=== PATIENT | male | born 1960 | race African-American/Black ===

== ENCOUNTER 2018-10-24 09:05 | Inpatient (IN) | payer MEDICAID ==
[~2018-10-24] VITALS: Ht 182.9 cm; Wt 103.4 kg
[~2018-10-24 09:05] MED LIST: ACET-2178 PO; ASCO500C15 PO; B50 PO; BISA10SU97 PR; DOCU250C14 PO; HC; KLONOPIN; MULT-1116 PO; RESTORIL PO; SOMA PO; [UNRECOGNIZED DRUG - CODE] MC
[2018-10-24] MEDS ORDERED: KETOROLAC 60MG/2ML VIAL IM ONE (10:15)
[2018-10-24 10:49] LABS: CLARITY URINE CLOUDY (CLEAR); COLOR URINE YELLOW (YELLOW); KETONES URINE 1+ (NEGATIVE); LEUKOCYTE ESTERASE URINE 2+ (NEGATIVE); NITRITE URINE NEGATIVE (NEGATIVE); OCCULT BLOOD URINE 3+ (NEGATIVE); PH URINE 5.5 (4.5-8.0); PROTEIN URINE 2+ (NEGATIVE); SPECIFIC GRAVITY URINE 1.022 (1.005-1.030)
[2018-10-24] MEDS ORDERED: CEFTRIAXONE SODIUM 1 G/VIAL IM ONE (12:00)
[2018-10-24] MEDS ORDERED: LIDOCAINE HCL 1% 20ML VIAL (Pyxis) INJ INFIL ONE (12:00)
[2018-10-24 19:20] LABS: BASOPHILS % 1.4 % (0.0-2.0); EOSINOPHILS % 6.3 % (0.0-5.0); HEMATOCRIT. 30.9 % (42.0-52.0); HEMOGLOBIN. 10.1 g/dL (14.0-18.0); LYMPHOCYTES % 14.9 % (20.0-50.0); MEAN CORPUSCULAR HEMOGLOBIN 27.2 pg (28.0-32.0); MEAN CORPUSCULAR VOLUME 83.1 fL (80.0-94.0); MEAN PLATELET VOLUME 8.2 fl (7.4-10.4); MONOCYTES % 9.3 % (2.0-8.0); NEUTROPHILS % 68.1 % (40.0-76.0); PLATELET 307 x1000/uL (130-400); RED BLOOD CELL COUNT 3.71 mill/uL (4.7-6.1); RED CELL DISTRIBUTION WIDTH 16.5 % (11.6-14.6)
[2018-10-24 19:26] LABS: CHLORIDE 108 mEq/L (98-107)
[2018-10-25] MEDS ORDERED: CEFTRIAXONE 1 G PREMIX 50 ML IV ONE (10:30)
[2018-10-25] MEDS ORDERED: POTASSIUM CHLORIDE 20MEQ TABLET SR PO ONE (10:45)
[2018-10-25 11:10] LABS: CHLORIDE 107 mEq/L (98-107)
[2018-10-25 12:00] VITALS: BP 118/58
[2018-10-25] MEDS ORDERED: ACETAMINOPHEN 650MG/20.3ML UDC PO PRN (14:15)
[2018-10-25 15:15] VITALS: BP 118/62
[2018-10-25] MEDS ORDERED: DIPHENHYDRAMINE 50MG/ML VIAL IV PRN (15:30)
[2018-10-25] MEDS ORDERED: CLONIDINE 0.1MG TABLET PO PRN (15:30)
[2018-10-25] MEDS ORDERED: MAGNESIUM/ALUMINUM HYDROXIDE/SIMETHICONE 30ML UDC PO PRN (15:30)
[2018-10-25] MEDS ORDERED: ACETAMINOPHEN 325MG TABLET PO PRN (15:30)
[2018-10-25] MEDS ORDERED: DOCUSATE SODIUM 100MG CAPSULE PO PRN (15:30)
[2018-10-25] MEDS ORDERED: IPRATROPIUM/ALBUTEROL 0.5-3(2.5)MG/3ML NEB INH PRN (15:30)
[2018-10-25] MEDS ORDERED: GUAIFENESIN 200MG/10ML SUGAR FREE UDC PO PRN (15:30)
[2018-10-25] MEDS ORDERED: ONDANSETRON HCL 4MG/2ML INJ IV PRN (15:30)
[2018-10-25] MEDS: DEXT 5%/0.45% NACL 1000ML 1,000 ML IV SCH (16:15)
[2018-10-25] MEDS: HYDROCODONE/ACETAMINOPHEN 10/325MG TABLET PO PRN (18:47)
[2018-10-26] MEDS: TEMAZEPAM 15MG CAPSULE PO PRN ×2 (01:10→21:02)
[2018-10-26] MEDS: HYDROCODONE/ACETAMINOPHEN 10/325MG TABLET PO PRN ×3 (01:13→17:43)
[2018-10-26] MEDS: DEXT 5%/0.45% NACL 1000ML 1,000 ML IV SCH (12:00)
[2018-10-26] MEDS: SODIUM HYPOCHLORITE 0.125% 473ML SOLUTION TOP SCH (17:00)
[2018-10-26 17:34] VITALS: BP 112/64
[2018-10-26 20:00] VITALS: BP 115/59
[2018-10-26] MEDS ORDERED: CEFTRIAXONE SODIUM 250 MG/VIAL IM SCH (21:00)
[2018-10-26] MEDS ORDERED: CEFTRIAXONE SODIUM 500 MG/VIAL IM SCH (22:00)
[2018-10-27] VITALS: BP 121/62
[2018-10-27] MEDS: HYDROCODONE/ACETAMINOPHEN 10/325MG TABLET PO PRN ×3 (06:03→22:30)
[2018-10-27] MEDS: DEXT 5%/0.45% NACL 1000ML 1,000 ML IV SCH (08:00)
[2018-10-27] MEDS: SODIUM HYPOCHLORITE 0.125% 473ML SOLUTION TOP SCH (09:00)
[2018-10-27 16:00] VITALS: BP 121/59
[2018-10-27 20:00] VITALS: BP 126/62
[2018-10-27] MEDS: CARISOPRODOL 350 MG TABLET PO PRN (21:55)
[2018-10-27] MEDS: TEMAZEPAM 15MG CAPSULE PO PRN (22:23)
[2018-10-27] MEDS: CEFTRIAXONE SODIUM 500 MG/VIAL IM SCH (23:41)
[2018-10-28] VITALS: BP 128/54
[2018-10-28] MEDS: CARISOPRODOL 350 MG TABLET PO PRN ×2 (08:56→21:20)
[2018-10-28] MEDS: HYDROCODONE/ACETAMINOPHEN 10/325MG TABLET PO PRN ×2 (08:57→16:15)
[2018-10-28] MEDS: SODIUM HYPOCHLORITE 0.125% 473ML SOLUTION TOP SCH (09:00)
[2018-10-28 09:20] LABS: PROTHROMBIN TIME 10.8 sec (9.6-11.0)
[2018-10-28] MEDS: DIPHENHYDRAMINE 25MG CAPSULE PO PRN (16:15)
[2018-10-28 20:00] VITALS: BP 109/60
[2018-10-28] MEDS: CEFTRIAXONE SODIUM 500 MG/VIAL IM SCH (21:20)
[2018-10-28] MEDS: TEMAZEPAM 15MG CAPSULE PO PRN (23:24)
[2018-10-29] VITALS: BP 125/73
[2018-10-29 04:00] VITALS: BP 114/64
[2018-10-29] MEDS: DIPHENHYDRAMINE 25MG CAPSULE PO PRN ×2 (04:25→18:09)
[2018-10-29] MEDS: HYDROCODONE/ACETAMINOPHEN 10/325MG TABLET PO PRN ×3 (06:25→22:29)
[2018-10-29] MEDS ORDERED: LIDOCAINE HCL/EPINEPHRINE 1%-EPI 1:100,000 20 ML VIAL INFIL NR (09:30)
[2018-10-29 11:45] VITALS: BP 118/71
[2018-10-29] MEDS: CARISOPRODOL 350 MG TABLET PO PRN ×2 (12:02→17:56)
[2018-10-29 12:34] LABS: BASOPHILS % 0.6 % (0.0-2.0); EOSINOPHILS % 3.1 % (0.0-5.0); HEMOGLOBIN. 11.2 g/dL (14.0-18.0); LYMPHOCYTES % 16.4 % (20.0-50.0); MEAN CORPUSCULAR HEMOGLOBIN 27.6 pg (28.0-32.0); MEAN CORPUSCULAR VOLUME 83.7 fL (80.0-94.0); MEAN PLATELET VOLUME 8.3 fl (7.4-10.4); MONOCYTES % 9.5 % (2.0-8.0); NEUTROPHILS % 70.4 % (40.0-76.0); PLATELET 346 x1000/uL (130-400); RED BLOOD CELL COUNT 4.06 mill/uL (4.7-6.1); RED CELL DISTRIBUTION WIDTH 16.7 % (11.6-14.6)
[2018-10-29] MEDS: DEXT 5%/0.45% NACL 1000ML 1,000 ML IV SCH (16:05)
[2018-10-29 20:00] VITALS: BP 114/68
[2018-10-29] MEDS: CEFTRIAXONE SODIUM 500 MG/VIAL IM SCH (21:28)
[2018-10-30] VITALS: BP 116/58
[2018-10-30] MEDS: TEMAZEPAM 15MG CAPSULE PO PRN (00:43)
[2018-10-30] MEDS: HYDROCODONE/ACETAMINOPHEN 10/325MG TABLET PO PRN (08:56)
[2018-10-30] MEDS: DIPHENHYDRAMINE 25MG CAPSULE PO PRN ×2 (09:06→15:50)
[2018-10-30] MEDS: CARISOPRODOL 350 MG TABLET PO PRN ×3 (10:30→23:04)
[2018-10-30 12:00] VITALS: BP 132/63
[2018-10-30 16:00] VITALS: BP 123/66
[2018-10-30] MEDS: HYDROCODONE/ACETAMINOPHEN 5/325MG TABLET PO PRN (18:27)
[2018-10-30 20:00] VITALS: BP 123/66
[2018-10-30] MEDS: CEFTRIAXONE SODIUM 500 MG/VIAL IM SCH (20:50)
[2018-10-31] VITALS: BP 118/65
[2018-10-31] MEDS: TEMAZEPAM 15MG CAPSULE PO PRN ×2 (00:15→23:44)
[2018-10-31] MEDS: DIPHENHYDRAMINE 25MG CAPSULE PO PRN ×2 (00:15→12:27)
[2018-10-31] MEDS: HYDROCODONE/ACETAMINOPHEN 5/325MG TABLET PO PRN ×2 (08:24→17:03)
[2018-10-31] MEDS: CARISOPRODOL 350 MG TABLET PO PRN ×2 (10:24→20:16)
[2018-10-31] MEDS: ENOXAPARIN 30MG/0.3ML SYR SUBCUT SCH ×2 (12:30→21:18)
[2018-10-31 20:00] VITALS: BP 93/66
[2018-11-01] VITALS: BP 112/65
[2018-11-01] MEDS: HYDROCODONE/ACETAMINOPHEN 5/325MG TABLET PO PRN ×2 (08:26→17:56)
[2018-11-01] MEDS: ENOXAPARIN 30MG/0.3ML SYR SUBCUT SCH ×2 (08:26→20:08)
[2018-11-01] MEDS: CARISOPRODOL 350 MG TABLET PO PRN ×2 (11:27→20:07)
[2018-11-01] MEDS: DIPHENHYDRAMINE 25MG CAPSULE PO PRN (14:26)
[2018-11-01 20:00] VITALS: BP 111/58
[2018-11-01] MEDS: TEMAZEPAM 15MG CAPSULE PO PRN (23:35)
[2018-11-02] VITALS: BP 118/60
[2018-11-02 04:00] VITALS: BP 115/64
[2018-11-02] MEDS: HYDROCODONE/ACETAMINOPHEN 5/325MG TABLET PO PRN ×2 (06:06→16:00)
[2018-11-02] MEDS: CARISOPRODOL 350 MG TABLET PO PRN ×2 (08:40→18:19)
[2018-11-02] MEDS: ENOXAPARIN 30MG/0.3ML SYR SUBCUT SCH ×2 (08:41→20:33)
[2018-11-02] MEDS: DIPHENHYDRAMINE 25MG CAPSULE PO PRN ×2 (11:24→20:30)
[2018-11-02 12:00] VITALS: BP 113/69
[2018-11-02 20:00] VITALS: BP 125/68
[2018-11-02] MEDS: TEMAZEPAM 15MG CAPSULE PO PRN (23:02)
[2018-11-03] VITALS: BP 108/66
[2018-11-03] MEDS: HYDROCODONE/ACETAMINOPHEN 5/325MG TABLET PO PRN ×3 (00:15→18:53)
[2018-11-03] MEDS: CARISOPRODOL 350 MG TABLET PO PRN ×3 (01:32→17:00)
[2018-11-03] MEDS: ENOXAPARIN 30MG/0.3ML SYR SUBCUT SCH (08:24)
[2018-11-03 12:00] VITALS: BP 115/63
[2018-11-03 16:08] VITALS: BP 104/72
[2018-11-03 17:24] VITALS: BP 122/73
[2018-11-03 18:53] VITALS: BP 115/78
== END 2018-11-03 19:01 | DRG 710 ==
LOC: ER 09:05 → 6EST 10-25 10:45 → EDBEDREQ 10-25 10:55 → ENRESERV 10-25 11:39
PROVIDERS: ADMIT Internal Medicine; ATTEND Internal Medicine
PROC: 0KBP0ZZ Excision of Left Hip Muscle, Open Approach (ICD-10-PCS; principal; 2018-10-29)
PROC: 0KBN0ZZ Excision of Right Hip Muscle, Open Approach (ICD-10-PCS; 2018-10-29)
PROC: 0KBP0ZZ Excision of Left Hip Muscle, Open Approach (ICD-10-PCS; 2018-11-01)
PROC: 0KBN0ZZ Excision of Right Hip Muscle, Open Approach (ICD-10-PCS; 2018-11-01)
DX: A41.9 Sepsis, unspecified organism (principal); L89.154 Pressure ulcer of sacral region, stage 4; G82.20 Paraplegia, unspecified; L89.324 Pressure ulcer of left buttock, stage 4; L89.314 Pressure ulcer of right buttock, stage 4; B19.20 Unspecified viral hepatitis C without hepatic coma; E66.9 Obesity, unspecified; S20.229A Contusion of unspecified back wall of thorax, initial encounter; W05.0XXA Fall from non-moving wheelchair, initial encounter; N39.0 Urinary tract infection, site not specified; L98.419 Non-pressure chronic ulcer of buttock with unspecified severity; Z59.0 Homelessness; Z86.718 Personal history of other venous thrombosis and embolism; Z99.3 Dependence on wheelchair; Z87.440 Personal history of urinary (tract) infections; I10 Essential (primary) hypertension; Z83.3 Family history of diabetes mellitus; Z89.431 Acquired absence of right foot; Z93.3 Colostomy status; Y93.89 Activity, other specified; Y92.89 Other specified places as the place of occurrence of the external cause; Y99.8 Other external cause status; Z68.30 Body mass index [BMI] 30.0-30.9, adult
CPT/HCPCS: 36415; 80048; 84134; 93970; 99285; J0696; J1200; J1650; J1885; J3490; Q0163

== ENCOUNTER 2019-07-06 20:59 | Inpatient (IN) | payer MEDICAID ==
[~2019-07-06] VITALS: Ht 167.6 cm; Wt 78.9 kg
[~2019-07-06 20:59] MED LIST changes: -ACET-2178 PO; +TOPUD PO
[2019-07-06] MEDS ORDERED: SODIUM CHLORIDE 0.9% 1,000 ML IV ONE (22:06)
[2019-07-07 00:45] LABS: BASOPHILS % 0.6 % (0.0-2.0); EOSINOPHILS % 1.5 % (0.0-5.0); HEMATOCRIT. 26.3 % (42.0-52.0); HEMOGLOBIN. 8.4 g/dL (14.0-18.0); LYMPHOCYTES % 8.9 % (20.0-50.0); MEAN CORPUSCULAR HEMOGLOBIN 25.3 pg (28.0-32.0); MEAN CORPUSCULAR VOLUME 79.2 fL (80.0-94.0); MEAN PLATELET VOLUME 7.8 fl (7.4-10.4); MONOCYTES % 7.6 % (2.0-8.0); NEUTROPHILS % 81.4 % (40.0-76.0); PLATELET 494 x1000/uL (130-400); RED BLOOD CELL COUNT 3.31 mill/uL (4.7-6.1); RED CELL DISTRIBUTION WIDTH 18.5 % (11.6-14.6)
[2019-07-07 00:47] LABS: CHLORIDE 106 mEq/L (98-107)
[2019-07-07 00:56] LABS: INR 1.4; PROTHROMBIN TIME 13.8 sec (9.6-11.0)
[2019-07-07 01:17] LABS: CLARITY URINE CLOUDY (CLEAR); COLOR URINE DARK YELLOW (YELLOW); KETONES URINE TRACE (NEGATIVE); LEUKOCYTE ESTERASE URINE 3+ (NEGATIVE); NITRITE URINE POSITIVE (NEGATIVE); OCCULT BLOOD URINE 2+ (NEGATIVE); PH URINE 5.5 (4.5-8.0); PROTEIN URINE 2+ (NEGATIVE)
[2019-07-07] MEDS ORDERED: MEROPENEM 500 MG in SODIUM CHLORIDE 0.9% 50 ML IV SCH (02:00)
[2019-07-07] MEDS ORDERED: CEFTRIAXONE 1 G PREMIX 50 ML IV SCH (02:00)
[2019-07-07] MEDS ORDERED: CLINDAMYCIN 900 MG PREMIX 50 ML IV SCH (02:00)
[2019-07-07] MEDS ORDERED: KETOROLAC 15MG/ML VIAL IV ONE (02:15)
[2019-07-07] MEDS ORDERED: IPRATROPIUM/ALBUTEROL 0.5-3(2.5)MG/3ML NEB HHN PRN (10:00)
[2019-07-07] MEDS ORDERED: DOCUSATE SODIUM 100MG CAPSULE PO PRN (10:00)
[2019-07-07] MEDS ORDERED: CLONIDINE 0.1MG TABLET PO PRN (10:00)
[2019-07-07] MEDS ORDERED: ACETAMINOPHEN 325MG TABLET PO PRN (10:00)
[2019-07-07] MEDS ORDERED: LORAZEPAM 0.5MG TABLET PO PRN (10:00)
[2019-07-07] MEDS ORDERED: ONDANSETRON HCL 4MG/2ML INJ IV PRN (10:00)
[2019-07-07] MEDS: HYDROCODONE/ACETAMINOPHEN 5/325MG TABLET PO PRN ×2 (13:32→20:26)
[2019-07-07] MEDS ORDERED: CYCLOBENZAPRINE 10MG TABLET PO PRN (16:30)
[2019-07-07] MEDS ORDERED: PIPERACILLIN/TAZOBACTAM 3.375 G in DEXT 5% WATER 100 ML IV SCH (16:30)
[2019-07-07] MEDS: DOCUSATE SODIUM 250MG CAPSULE PO SCH (17:00)
[2019-07-07 17:55] VITALS: BP 124/68
[2019-07-07 17:57] VITALS: BP 124/68
[2019-07-07] MEDS ORDERED: WARFARIN SODIUM 7.5MG TABLET PO SCH (18:00)
[2019-07-07] MEDS: DIPHENHYDRAMINE 50MG CAPSULE PO SCH (18:13)
[2019-07-07 19:02] VITALS: BP 128/63
[2019-07-07 19:42] LABS: TOTAL IRON BINDING CAPACITY 158 ug/dL (250-450)
[2019-07-07 20:00] VITALS: BP 91/67
[2019-07-07] MEDS ORDERED: VANCOMYCIN 1500MG in DEXTROSE 5% WATER 250ML IV NR (20:00)
[2019-07-07 20:12] LABS: VITAMIN B12 SERUM 513 pg/mL (211-911)
[2019-07-07 20:18] LABS: FERRITIN 895 ng/mL (22-322)
[2019-07-07 20:30] LABS: HEPATITIS B SURFACE ANTIGEN NEGATIVE
[2019-07-07] MEDS: BISACODYL 10MG SUPP PR SCH (20:44)
[2019-07-07 20:59] LABS: HEPATITIS A AB IGM NEGATIVE (NEGATIVE)
[2019-07-07] MEDS: PIPERACILLIN/TAZOBACTAM 2.25 G in DEXTROSE 5% WATER 50 ML IV SCH (21:23)
[2019-07-07] MEDS: ZOLPIDEM TARTRATE 5MG TABLET PO PRN (23:11)
[2019-07-07] MEDS: HYDROCODONE/ACETAMINOPHEN 10/325MG TABLET PO PRN (23:55)
[2019-07-08] VITALS: BP 114/41
[2019-07-08 00:35] VITALS: BP 110/52
[2019-07-08] MEDS: PIPERACILLIN/TAZOBACTAM 2.25 G in DEXTROSE 5% WATER 50 ML IV SCH ×2 (01:20→06:00)
[2019-07-08] MEDS: DIPHENHYDRAMINE 50MG CAPSULE PO SCH ×3 (01:20→16:12)
[2019-07-08] MEDS ORDERED: VANCOMYCIN 1 G PREMIX 200 ML IV SCH (03:00)
[2019-07-08 08:00] VITALS: BP 99/46
[2019-07-08] MEDS: DOCUSATE SODIUM 250MG CAPSULE PO SCH ×2 (09:00→16:12)
[2019-07-08] MEDS: VANCOMYCIN 1500MG in DEXTROSE 5% WATER 250ML IV SCH ×2 (10:00→15:47)
[2019-07-08 12:00] VITALS: BP 99/42
[2019-07-08] MEDS ORDERED: PIPERACILLIN/TAZOBACTAM 3.375 G in DEXT 5% WATER 100 ML IV SCH (12:00)
[2019-07-08] MEDS: HYDROCODONE/ACETAMINOPHEN 10/325MG TABLET PO PRN ×2 (12:57→19:50)
[2019-07-08] MEDS ORDERED: AMOXICILLIN/POTASSIUM CLAVULANATE 875/125MG TAB PO SCH (13:00)
[2019-07-08] MEDS: HYDROCODONE/ACETAMINOPHEN 5/325MG TABLET PO PRN (14:52)
[2019-07-08 16:00] VITALS: BP 128/57
[2019-07-08] MEDS: GUAIFENESIN 200MG/10ML SUGAR FREE UDC PO PRN (16:18)
[2019-07-08] MEDS: PIPERACILLIN/TAZOBACTAM 3.375 G in DEXT 5% WATER 100 ML IV SCH ×2 (18:00→18:34)
[2019-07-08] MEDS ORDERED: WARFARIN SODIUM 5MG TABLET PO SCH (18:30)
[2019-07-08 20:00] VITALS: BP 115/53
[2019-07-08] MEDS: BISACODYL 10MG SUPP PR SCH (21:00)
[2019-07-08] MEDS: ZOLPIDEM TARTRATE 5MG TABLET PO PRN (21:45)
[2019-07-09] MEDS: AMOXICILLIN/POTASSIUM CLAVULANATE 875/125MG TAB PO SCH ×2 (00:05→08:34)
[2019-07-09] MEDS: DIPHENHYDRAMINE 50MG CAPSULE PO SCH ×3 (00:06→16:04)
[2019-07-09] MEDS: HYDROCODONE/ACETAMINOPHEN 5/325MG TABLET PO PRN ×4 (00:23→20:25)
[2019-07-09] MEDS: HYDROCODONE/ACETAMINOPHEN 10/325MG TABLET PO PRN ×4 (03:16→22:47)
[2019-07-09] MEDS: DOCUSATE SODIUM 250MG CAPSULE PO SCH ×2 (08:34→16:04)
[2019-07-09 12:00] VITALS: BP 134/54
[2019-07-09] MEDS: GUAIFENESIN 200MG/10ML SUGAR FREE UDC PO PRN (12:02)
[2019-07-09] MEDS ORDERED: WARFARIN SODIUM 5MG TABLET PO NR (18:00)
[2019-07-09 20:00] VITALS: BP 135/62
[2019-07-09] MEDS ORDERED: CEFEPIME 2,000 MG in DEXT 5% WATER 100 ML IV SCH (20:00)
[2019-07-09] MEDS ORDERED: CEFEPIME HCL 2000MG/VIAL INJ IV SCH (21:00)
[2019-07-09] MEDS: BISACODYL 10MG SUPP PR SCH (21:00)
[2019-07-09] MEDS: CEFEPIME HCL 1000MG/VIAL INJ IM SCH (21:52)
[2019-07-09] MEDS: LIDOCAINE HCL/PF 1% 10 MG/ML 5ML VIAL IJ SCH (21:52)
[2019-07-09] MEDS: ZOLPIDEM TARTRATE 5MG TABLET PO PRN (22:47)
[2019-07-10] MEDS: DIPHENHYDRAMINE 50MG CAPSULE PO SCH ×3 (02:22→18:39)
[2019-07-10] MEDS: HYDROCODONE/ACETAMINOPHEN 10/325MG TABLET PO PRN ×3 (06:09→19:49)
[2019-07-10] MEDS: DOCUSATE SODIUM 250MG CAPSULE PO SCH ×2 (09:00→18:42)
[2019-07-10] MEDS: CEFEPIME HCL 1000MG/VIAL INJ IM SCH ×2 (09:00→23:32)
[2019-07-10] MEDS: LIDOCAINE HCL/PF 1% 10 MG/ML 5ML VIAL IJ SCH ×2 (09:00→23:32)
[2019-07-10 12:00] VITALS: BP 122/41
[2019-07-10 16:00] VITALS: BP 109/59
[2019-07-10] MEDS: HYDROCODONE/ACETAMINOPHEN 5/325MG TABLET PO PRN ×2 (16:58→22:03)
[2019-07-10] MEDS ORDERED: SENNOSIDES 8.6MG TABLET PO PRN (17:45)
[2019-07-10 20:00] VITALS: BP 127/66
[2019-07-10 20:31] LABS: BASOPHILS % 1.2 % (0.0-2.0); EOSINOPHILS % 3.2 % (0.0-5.0); HEMATOCRIT. 26.9 % (42.0-52.0); HEMOGLOBIN. 8.5 g/dL (14.0-18.0); LYMPHOCYTES % 9.3 % (20.0-50.0); MEAN CORPUSCULAR HEMOGLOBIN 25.4 pg (28.0-32.0); MEAN CORPUSCULAR VOLUME 80.2 fL (80.0-94.0); MEAN PLATELET VOLUME 7.9 fl (7.4-10.4); MONOCYTES % 7.1 % (2.0-8.0); NEUTROPHILS % 79.2 % (40.0-76.0); PLATELET 452 x1000/uL (130-400); RED BLOOD CELL COUNT 3.36 mill/uL (4.7-6.1); RED CELL DISTRIBUTION WIDTH 19.1 % (11.6-14.6)
[2019-07-10 20:34] LABS: INR 1.3; PROTHROMBIN TIME 12.7 sec (9.6-11.0)
[2019-07-10 20:50] LABS: CHLORIDE 102 mEq/L (98-107)
[2019-07-10] MEDS: BISACODYL 10MG SUPP PR SCH (21:00)
[2019-07-10] MEDS ORDERED: WARFARIN SODIUM 2.5MG TABLET PO NR (21:30)
[2019-07-10] MEDS: TEMAZEPAM 15MG CAPSULE PO PRN (21:37)
[2019-07-11] MEDS: HYDROCODONE/ACETAMINOPHEN 10/325MG TABLET PO PRN ×4 (04:12→23:59)
[2019-07-11] MEDS: DIPHENHYDRAMINE 50MG CAPSULE PO SCH ×3 (04:12→17:47)
[2019-07-11] MEDS: LIDOCAINE HCL/PF 1% 10 MG/ML 5ML VIAL IJ SCH ×2 (09:19→20:50)
[2019-07-11] MEDS: CEFEPIME HCL 1000MG/VIAL INJ IM SCH ×2 (09:19→20:51)
[2019-07-11] MEDS: DOCUSATE SODIUM 250MG CAPSULE PO SCH ×2 (09:20→17:47)
[2019-07-11 10:58] LABS: INR 1.2; PROTHROMBIN TIME 12.5 sec (9.6-11.0)
[2019-07-11] MEDS: HYDROCODONE/ACETAMINOPHEN 5/325MG TABLET PO PRN ×2 (14:30→20:49)
[2019-07-11] MEDS ORDERED: WARFARIN SODIUM 7.5MG TABLET PO SCH (18:00)
[2019-07-11 20:00] VITALS: BP 113/63
[2019-07-11] MEDS: TEMAZEPAM 15MG CAPSULE PO PRN (22:25)
[2019-07-12] VITALS: BP 114/62
[2019-07-12] MEDS: DIPHENHYDRAMINE 50MG CAPSULE PO SCH ×2 (03:19→10:32)
[2019-07-12 04:00] VITALS: BP 109/65
[2019-07-12] MEDS: HYDROCODONE/ACETAMINOPHEN 10/325MG TABLET PO PRN ×2 (06:00→12:52)
[2019-07-12] MEDS: DOCUSATE SODIUM 250MG CAPSULE PO SCH (10:32)
[2019-07-12] MEDS: LIDOCAINE HCL/PF 1% 10 MG/ML 5ML VIAL IJ SCH (11:10)
[2019-07-12] MEDS: CEFEPIME HCL 1000MG/VIAL INJ IM SCH (11:10)
[2019-07-12 11:35] VITALS: BP 134/74
[2019-07-12 12:00] VITALS: BP 119/74
[2019-07-12 12:52] VITALS: BP 119/69
== END 2019-07-12 14:00 | disposition home health service (06) | DRG 466 ==
LOC: ER 20:59 → 5WST 07-07 01:36 → ENRESERV 07-07 14:34 → 6EST 07-10 10:27
PROVIDERS: ADMIT Internal Medicine; ATTEND Internal Medicine
DX: T83.518A Infection and inflammatory reaction due to other urinary catheter, initial encounter (principal); A41.9 Sepsis, unspecified organism; L89.159 Pressure ulcer of sacral region, unspecified stage; L89.310 Pressure ulcer of right buttock, unstageable; E46 Unspecified protein-calorie malnutrition; L89.320 Pressure ulcer of left buttock, unstageable; L89.623 Pressure ulcer of left heel, stage 3; D68.9 Coagulation defect, unspecified; G82.20 Paraplegia, unspecified; L97.519 Non-pressure chronic ulcer of other part of right foot with unspecified severity; N39.0 Urinary tract infection, site not specified; D50.9 Iron deficiency anemia, unspecified; I10 Essential (primary) hypertension; L89.616 Pressure-induced deep tissue damage of right heel; M46.28 Osteomyelitis of vertebra, sacral and sacrococcygeal region; D47.3 Essential (hemorrhagic) thrombocythemia; B96.89 Other specified bacterial agents as the cause of diseases classified elsewhere; B19.20 Unspecified viral hepatitis C without hepatic coma; Y84.6 Urinary catheterization as the cause of abnormal reaction of the patient, or of later complication, without mention of misadventure at the time of the procedure; Y92.89 Other specified places as the place of occurrence of the external cause; Z93.3 Colostomy status; Z86.718 Personal history of other venous thrombosis and embolism; Z68.28 Body mass index [BMI] 28.0-28.9, adult; Z74.01 Bed confinement status; Z59.0 Homelessness; Z88.1 Allergy status to other antibiotic agents; Z91.018 Allergy to other foods; Z88.2 Allergy status to sulfonamides; Z79.899 Other long term (current) drug therapy; Z72.0 Tobacco use; Z71.6 Tobacco abuse counseling
CPT/HCPCS: 36415; 71045; 72192; 73030; 76700; 80048; 80053; 81003; 82607; 82728; 82746; 83540; 83550; 83605; 84134; 84484; 85025; 86705; 86709; 86803; 87077; 87186; 87340; 96361; 96365; 96367; 99285; A4565; C1893; J0692; J0696; J1885; J2185; J2543; J3370; J3490; J7030; J7060; Q0163

== ENCOUNTER 2019-12-27 17:54 | Inpatient (IN) | payer MEDICAID ==
[2019-12-26] MEDS: CEFTRIAXONE 1 G PREMIX 50 ML IV SCH (23:45)
[~2019-12-27] VITALS: Ht 182.9 cm; Wt 85.3 kg
[2019-12-27] MEDS: CLINDAMYCIN 600MG PREMIX 50 ML IV SCH (00:15)
[2019-12-27] MEDS ORDERED: SODIUM CHLORIDE 0.9% 1000ML BAG (SEPSIS BOLUS) IV ONE (19:15)
[2019-12-27] MEDS ORDERED: KETAMINE HCL 50 MG/ML 10ML IM ONE (19:15)
[2019-12-27] MEDS ORDERED: CLINDAMYCIN 600 MG in DEXTROSE 5% WATER 50 ML IV ONE (19:15)
[2019-12-27] MEDS ORDERED: CEFTRIAXONE SODIUM 1 G/VIAL IM ONE (19:15)
[2019-12-27 19:59] LABS: HEMATOCRIT. 24.3 % (42.0-52.0); HEMOGLOBIN. 7.8 g/dL (14.0-18.0); MEAN CORPUSCULAR HEMOGLOBIN 25.9 pg (28.0-32.0); MEAN CORPUSCULAR VOLUME 80.6 fL (80.0-94.0); MEAN PLATELET VOLUME 8.1 fl (7.4-10.4); PLATELET 534 x1000/uL (130-400); RED BLOOD CELL COUNT 3.02 mill/uL (4.7-6.1); RED CELL DISTRIBUTION WIDTH 21.9 % (11.6-14.6)
[2019-12-27 20:02] LABS: CHLORIDE 99 mEq/L (98-107)
[2019-12-27 20:05] LABS: INR 1.3; PROTHROMBIN TIME 13.8 sec (9.6-11.0)
[2019-12-27 20:06] LABS: ETHANOL BLOOD < 10 mg/dL
[2019-12-27 20:21] LABS: CLARITY URINE CLOUDY (CLEAR); COLOR URINE DARK YELLOW (YELLOW); KETONES URINE TRACE (NEGATIVE); LEUKOCYTE ESTERASE URINE 3+ (NEGATIVE); NITRITE URINE NEGATIVE (NEGATIVE); OCCULT BLOOD URINE 2+ (NEGATIVE); PROTEIN URINE 2+ (NEGATIVE); SPECIFIC GRAVITY URINE 1.018 (1.005-1.030)
[2019-12-27 21:06] LABS: PLATELET ESTIMATE MARKEDLY INCREASED
[2019-12-27 21:13] LABS: *BARBITURATES SCREEN URINE NEGATIVE (NEGATIVE); *BENZODIAZEPINES SCREEN URINE NEGATIVE (NEGATIVE)
[2019-12-27 21:14] LABS: *AMPHETAMINES SCREEN URINE NEGATIVE (NEGATIVE); *COCAINE SCREEN URINE PRESUMTIVE POSITIVE (NEGATIVE); METHADONE URINE SCREEN NEGATIVE (NEGATIVE); OPIATES URINE SCREEN NEGATIVE (NEGATIVE); PHENCYCLIDINE URINE SCREEN NEGATIVE (NEGATIVE)
[2019-12-27 21:15] LABS: CANNABINOID URINE SCREEN PRESUMTIVE POSITIVE (NEGATIVE)
[2019-12-27] MEDS ORDERED: LIDOCAINE HCL/PF 1% 10 MG/ML 5ML VIAL ONE (21:43)
[2019-12-27] MEDS: SODIUM CHLORIDE 0.9% 1,000 ML IV SCH (23:13)
[2019-12-27] MEDS ORDERED: IPRATROPIUM/ALBUTEROL 0.5-3(2.5)MG/3ML NEB NEB PRN (23:15)
[2019-12-27] MEDS ORDERED: CLONIDINE 0.1MG TABLET PO PRN (23:15)
[2019-12-27] MEDS ORDERED: MAGNESIUM/ALUMINUM HYDROXIDE/SIMETHICONE 30ML UDC PO PRN (23:15)
[2019-12-28 01:17] LABS: CHLORIDE 106 mEq/L (98-107)
[2019-12-28 01:40] LABS: C REACTIVE PROTEIN QUANT > 190.0 mg/L (0.0-3.0)
[2019-12-28 05:21] LABS: BASOPHILS % 0.7 % (0.0-2.0); EOSINOPHILS % 0.8 % (0.0-5.0); LYMPHOCYTES % 8.4 % (20.0-50.0); MEAN CORPUSCULAR HEMOGLOBIN 26.6 pg (28.0-32.0); MEAN CORPUSCULAR VOLUME 80.5 fL (80.0-94.0); MEAN PLATELET VOLUME 7.5 fl (7.4-10.4); MONOCYTES % 11.4 % (2.0-8.0); NEUTROPHILS % 78.7 % (40.0-76.0); PLATELET 416 x1000/uL (130-400); RED BLOOD CELL COUNT 2.57 mill/uL (4.7-6.1); RED CELL DISTRIBUTION WIDTH 21.6 % (11.6-14.6)
[2019-12-28 05:35] LABS: LDL CHOLESTEROL 24 mg/dL (5-100)
[2019-12-28 05:36] LABS: CREATINE KINASE 69 IU/L (39-308); HDL CHOLESTEROL 31 mg/dL (40-59)
[2019-12-28] MEDS: CLINDAMYCIN 600MG PREMIX 50 ML IV SCH ×3 (06:00→21:28)
[2019-12-28] MEDS ORDERED: CLINDAMYCIN 600 MG in DEXTROSE 5% WATER 50 ML IV SCH (06:00)
[2019-12-28] MEDS ORDERED: DEXTROSE 50% WATER 50ML SYRINGE IV PRN (06:00)
[2019-12-28 06:27] LABS: HEMATOCRIT. 20.7 % (42.0-52.0); HEMOGLOBIN. 6.8 g/dL (14.0-18.0)
[2019-12-28] MEDS: INSULIN LISPRO (HIGH DOSE) 100 UNITS/ML SUBCUT SCH ×5 (07:00→21:00)
[2019-12-28] MEDS: HEPARIN 5000 UNITS/ML VIAL SUBCUT SCH ×2 (09:00→21:36)
[2019-12-28] MEDS ORDERED: POTASSIUM CHLORIDE INJ 40 MEQ in DEXT 5% WATER 250 ML IV NR (10:00)
[2019-12-28] MEDS: BLOOD SUGAR DIAGNOSTIC STRIP TEST SCH ×4 (10:00→21:00)
[2019-12-28 12:00] VITALS: BP 90/54
[2019-12-28] MEDS: HYDROCODONE/ACETAMINOPHEN 5/325MG TABLET PO PRN (13:01)
[2019-12-28] MEDS: SODIUM CHLORIDE 0.9% 1,000 ML IV SCH (13:21)
[2019-12-28 14:30] VITALS: BP 95/52
[2019-12-28 15:55] LABS: HEMATOCRIT 23.7 % (42.0-52.0); HEMOGLOBIN 7.7 g/dL (14.0-18.0)
[2019-12-28 16:06] LABS: CREATINE KINASE 87 IU/L (39-308); INR 1.2; PROTHROMBIN TIME 13.1 sec (9.6-11.0)
[2019-12-28 16:07] VITALS: BP 96/47
[2019-12-28 16:07] LABS: CREATINE KINASE MB FRACTION 1.8 ng/mL (0.5-3.6)
[2019-12-28] MEDS ORDERED: MORPHINE SULFATE 4 MG/ML CPJ (NOT FOR IM USE) IV ONE (16:45)
[2019-12-28] MEDS: DIPHENHYDRAMINE 50MG/ML VIAL IV PRN ×2 (18:41→23:08)
[2019-12-28 20:00] VITALS: BP 101/56
[2019-12-28] MEDS: CEFTRIAXONE 1 G PREMIX 50 ML IV SCH (21:28)
[2019-12-28] MEDS: NITROFURANTOIN MACROCRYSTAL 50MG CAPSULE PO SCH (22:00)
[2019-12-28] MEDS: MORPHINE SULFATE 2 MG/ML CPJ (NOT FOR IM USE) IV PRN (23:01)
[2019-12-29] VITALS: BP 98/53
[2019-12-29] MEDS: SODIUM CHLORIDE 0.9% 1,000 ML IV SCH (01:53)
[2019-12-29] MEDS: CLINDAMYCIN 600MG PREMIX 50 ML IV SCH ×2 (06:50→15:15)
[2019-12-29] MEDS: BLOOD SUGAR DIAGNOSTIC STRIP TEST SCH ×4 (07:03→21:44)
[2019-12-29] MEDS: INSULIN LISPRO (HIGH DOSE) 100 UNITS/ML SUBCUT SCH ×4 (07:50→21:00)
[2019-12-29 10:18] VITALS: BP 98/55
[2019-12-29] MEDS: HEPARIN 5000 UNITS/ML VIAL SUBCUT SCH ×2 (10:34→21:44)
[2019-12-29] MEDS: NITROFURANTOIN MACROCRYSTAL 50MG CAPSULE PO SCH ×2 (10:35→18:09)
[2019-12-29] MEDS: ONDANSETRON HCL 4MG/2ML INJ IV PRN (10:39)
[2019-12-29 12:00] VITALS: BP 104/57
[2019-12-29] MEDS: MORPHINE SULFATE 2 MG/ML CPJ (NOT FOR IM USE) IV PRN ×2 (12:50→21:45)
[2019-12-29] MEDS ORDERED: MORPHINE SULFATE 4 MG/ML CPJ (NOT FOR IM USE) IV NR (14:00)
[2019-12-29] MEDS: DIPHENHYDRAMINE 50MG/ML VIAL IV PRN (15:15)
[2019-12-29 16:00] VITALS: BP 112/60
[2019-12-29] MEDS: SODIUM HYPOCHLORITE 0.125% 473ML SOLUTION TOP SCH (18:10)
[2019-12-29 20:43] VITALS: BP 98/51
[2019-12-29] MEDS ORDERED: CEFTRIAXONE 1 G PREMIX 50 ML IV SCH (21:00)
[2019-12-29] MEDS ORDERED: CEFTRIAXONE 2 G in SODIUM CHLORIDE 0.9% 50 ML IV SCH (21:30)
[2019-12-29] MEDS ORDERED: POTASSIUM CHLORIDE 20MEQ TABLET SR PO NR (23:00)
[2019-12-30] MEDS: DAPTOMYCIN 500 MG in SODIUM CHLORIDE 0.9% 50 ML IV SCH (00:20)
[2019-12-30 00:22] VITALS: BP 103/57
[2019-12-30] MEDS: DIPHENHYDRAMINE 50MG/ML VIAL IV PRN ×3 (01:06→22:26)
[2019-12-30] MEDS: SODIUM CHLORIDE 0.9% 1,000 ML IV SCH ×2 (04:33→20:00)
[2019-12-30] MEDS: BLOOD SUGAR DIAGNOSTIC STRIP TEST SCH ×4 (07:20→21:00)
[2019-12-30] MEDS: INSULIN LISPRO (HIGH DOSE) 100 UNITS/ML SUBCUT SCH ×4 (07:50→21:00)
[2019-12-30 08:13] VITALS: BP 102/57
[2019-12-30] MEDS: SODIUM HYPOCHLORITE 0.125% 473ML SOLUTION TOP SCH ×2 (09:00→16:23)
[2019-12-30] MEDS: HEPARIN 5000 UNITS/ML VIAL SUBCUT SCH ×2 (09:00→20:21)
[2019-12-30 09:12] LABS: EOSINOPHILS % 4.2 % (0.0-5.0); HEMOGLOBIN. 7.6 g/dL (14.0-18.0); LYMPHOCYTES % 11.9 % (20.0-50.0); MEAN CORPUSCULAR HEMOGLOBIN 26.9 pg (28.0-32.0); MEAN CORPUSCULAR VOLUME 80.8 fL (80.0-94.0); MEAN PLATELET VOLUME 6.8 fl (7.4-10.4); MONOCYTES % 11.9 % (2.0-8.0); PLATELET 419 x1000/uL (130-400); RED BLOOD CELL COUNT 2.84 mill/uL (4.7-6.1); RED CELL DISTRIBUTION WIDTH 20.6 % (11.6-14.6)
[2019-12-30] MEDS: MORPHINE SULFATE 2 MG/ML CPJ (NOT FOR IM USE) IV PRN ×3 (09:23→20:28)
[2019-12-30 09:24] LABS: CHLORIDE 111 mEq/L (98-107)
[2019-12-30] MEDS: ONDANSETRON HCL 4MG/2ML INJ IV PRN (09:42)
[2019-12-30 11:45] VITALS: BP 94/56
[2019-12-30 16:48] VITALS: BP 95/55
[2019-12-30 20:00] VITALS: BP 101/60
[2019-12-31] MEDS: DAPTOMYCIN 500 MG in SODIUM CHLORIDE 0.9% 50 ML IV SCH ×2 (00:32→23:22)
[2019-12-31 00:43] VITALS: BP 101/55
[2019-12-31] MEDS: MORPHINE SULFATE 2 MG/ML CPJ (NOT FOR IM USE) IV PRN ×5 (00:58→23:33)
[2019-12-31] MEDS: DIPHENHYDRAMINE 50MG/ML VIAL IV PRN ×3 (05:19→18:45)
[2019-12-31] MEDS: SODIUM CHLORIDE 0.9% 1,000 ML IV SCH ×2 (07:13→20:33)
[2019-12-31] MEDS: BLOOD SUGAR DIAGNOSTIC STRIP TEST SCH ×4 (07:20→21:00)
[2019-12-31] MEDS: INSULIN LISPRO (HIGH DOSE) 100 UNITS/ML SUBCUT SCH ×4 (07:50→21:00)
[2019-12-31 07:59] VITALS: BP 122/72
[2019-12-31 08:00] VITALS: BP 106/58
[2019-12-31] MEDS: SODIUM HYPOCHLORITE 0.125% 473ML SOLUTION TOP SCH ×2 (09:00→17:00)
[2019-12-31] MEDS: HEPARIN 5000 UNITS/ML VIAL SUBCUT SCH ×2 (09:14→20:48)
[2019-12-31 11:18] LABS: CHLORIDE 105 mEq/L (98-107)
[2019-12-31 12:00] VITALS: BP 105/55
[2019-12-31 16:00] VITALS: BP 115/70
[2019-12-31] MEDS: ONDANSETRON HCL 4MG/2ML INJ IV PRN (16:24)
[2019-12-31 18:03] LABS: BASOPHILS % 1.2 % (0.0-2.0); EOSINOPHILS % 3.7 % (0.0-5.0); HEMATOCRIT. 23.9 % (42.0-52.0); HEMOGLOBIN. 7.8 g/dL (14.0-18.0); LYMPHOCYTES % 15.9 % (20.0-50.0); MEAN CORPUSCULAR VOLUME 82.4 fL (80.0-94.0); MEAN PLATELET VOLUME 7.5 fl (7.4-10.4); MONOCYTES % 13.4 % (2.0-8.0); NEUTROPHILS % 65.8 % (40.0-76.0); PLATELET 428 x1000/uL (130-400); RED CELL DISTRIBUTION WIDTH 20.5 % (11.6-14.6)
[2019-12-31 20:16] VITALS: BP 100/58
[2019-12-31] MEDS: HYDROCODONE/ACETAMINOPHEN 5/325MG TABLET PO PRN (21:26)
[2019-12-31] MEDS: TEMAZEPAM 15MG CAPSULE PO PRN (23:22)
[2020-01-01 00:36] VITALS: BP 107/55
[2020-01-01] MEDS: DIPHENHYDRAMINE 50MG/ML VIAL IV PRN ×4 (02:31→21:59)
[2020-01-01] MEDS: MORPHINE SULFATE 2 MG/ML CPJ (NOT FOR IM USE) IV PRN ×3 (06:11→21:24)
[2020-01-01] MEDS: BLOOD SUGAR DIAGNOSTIC STRIP TEST SCH ×4 (06:37→21:23)
[2020-01-01] MEDS: INSULIN LISPRO (HIGH DOSE) 100 UNITS/ML SUBCUT SCH ×4 (07:06→21:00)
[2020-01-01 08:47] VITALS: BP 99/53
[2020-01-01] MEDS: SODIUM HYPOCHLORITE 0.125% 473ML SOLUTION TOP SCH ×2 (08:47→17:19)
[2020-01-01] MEDS: HEPARIN 5000 UNITS/ML VIAL SUBCUT SCH ×2 (08:47→20:45)
[2020-01-01] MEDS: SODIUM CHLORIDE 0.9% 1,000 ML IV SCH (09:05)
[2020-01-01 12:00] VITALS: BP 99/54
[2020-01-01 14:33] LABS: CHLORIDE 103 mEq/L (98-107)
[2020-01-01 16:00] VITALS: BP 106/52
[2020-01-01 17:22] LABS: BASOPHILS % 0.9 % (0.0-2.0); EOSINOPHILS % 3.1 % (0.0-5.0); HEMATOCRIT. 25.9 % (42.0-52.0); HEMOGLOBIN. 8.4 g/dL (14.0-18.0); LYMPHOCYTES % 14.7 % (20.0-50.0); MEAN CORPUSCULAR HEMOGLOBIN 26.9 pg (28.0-32.0); MEAN CORPUSCULAR VOLUME 82.5 fL (80.0-94.0); MEAN PLATELET VOLUME 7.3 fl (7.4-10.4); NEUTROPHILS % 69.3 % (40.0-76.0); PLATELET 437 x1000/uL (130-400); RED BLOOD CELL COUNT 3.13 mill/uL (4.7-6.1); RED CELL DISTRIBUTION WIDTH 20.7 % (11.6-14.6)
[2020-01-01 20:00] VITALS: BP 104/62
[2020-01-01] MEDS: AMPICILLIN 2,000 MG in SODIUM CHLORIDE 0.9% 100 ML IV SCH (20:45)
[2020-01-02] VITALS: BP 102/62
[2020-01-02] MEDS: TEMAZEPAM 15MG CAPSULE PO PRN ×2 (00:02→23:13)
[2020-01-02] MEDS: MORPHINE SULFATE 2 MG/ML CPJ (NOT FOR IM USE) IV PRN ×5 (01:23→20:03)
[2020-01-02] MEDS: AMPICILLIN 2,000 MG in SODIUM CHLORIDE 0.9% 100 ML IV SCH ×4 (02:04→22:04)
[2020-01-02] MEDS: DIPHENHYDRAMINE 50MG/ML VIAL IV PRN ×3 (06:26→20:03)
[2020-01-02] MEDS: BLOOD SUGAR DIAGNOSTIC STRIP TEST SCH ×4 (06:34→21:00)
[2020-01-02] MEDS: INSULIN LISPRO (HIGH DOSE) 100 UNITS/ML SUBCUT SCH ×4 (07:49→21:00)
[2020-01-02] MEDS: SODIUM HYPOCHLORITE 0.125% 473ML SOLUTION TOP SCH ×2 (09:00→16:43)
[2020-01-02] MEDS: HEPARIN 5000 UNITS/ML VIAL SUBCUT SCH ×2 (09:17→20:04)
[2020-01-02 12:12] VITALS: BP 101/60
[2020-01-02 16:00] VITALS: BP 100/59
[2020-01-02] MEDS ORDERED: BISACODYL 10MG SUPP PR PRN (17:45)
[2020-01-02 20:00] VITALS: BP 103/59
[2020-01-02] MEDS: DOCUSATE SODIUM 100MG CAPSULE PO PRN (23:13)
[2020-01-02] MEDS: ONDANSETRON HCL 4MG/2ML INJ IV PRN (23:13)
[2020-01-02] MEDS: SENNOSIDES/DOCUSATE SOD 8.6/50MG TABLET PO PRN (23:24)
[2020-01-03] VITALS: BP 105/55
[2020-01-03] MEDS: AMPICILLIN 2,000 MG in SODIUM CHLORIDE 0.9% 100 ML IV SCH ×4 (03:19→20:40)
[2020-01-03] MEDS: BLOOD SUGAR DIAGNOSTIC STRIP TEST SCH ×4 (06:45→21:00)
[2020-01-03] MEDS: INSULIN LISPRO (HIGH DOSE) 100 UNITS/ML SUBCUT SCH ×4 (07:44→21:00)
[2020-01-03] MEDS: SODIUM HYPOCHLORITE 0.125% 473ML SOLUTION TOP SCH ×2 (08:00→16:16)
[2020-01-03] MEDS: HEPARIN 5000 UNITS/ML VIAL SUBCUT SCH ×2 (08:01→20:45)
[2020-01-03] MEDS: MORPHINE SULFATE 2 MG/ML CPJ (NOT FOR IM USE) IV PRN ×2 (13:35→20:44)
[2020-01-03] MEDS: HYDROCODONE/ACETAMINOPHEN 5/325MG TABLET PO PRN ×2 (16:22→22:52)
[2020-01-03 16:24] VITALS: BP 94/57
[2020-01-03 17:34] LABS: CHLORIDE 106 mEq/L (98-107)
[2020-01-03 20:00] VITALS: BP 105/54
[2020-01-03] MEDS: DIPHENHYDRAMINE 50MG/ML VIAL IV PRN (20:44)
[2020-01-04] VITALS: BP 111/64
[2020-01-04] MEDS: TEMAZEPAM 15MG CAPSULE PO PRN (00:03)
[2020-01-04] MEDS: AMPICILLIN 2,000 MG in SODIUM CHLORIDE 0.9% 100 ML IV SCH ×4 (03:36→20:35)
[2020-01-04] MEDS: DIPHENHYDRAMINE 50MG/ML VIAL IV PRN ×2 (03:44→17:28)
[2020-01-04] MEDS: MORPHINE SULFATE 2 MG/ML CPJ (NOT FOR IM USE) IV PRN ×4 (03:44→23:31)
[2020-01-04] MEDS: BLOOD SUGAR DIAGNOSTIC STRIP TEST SCH ×4 (06:56→21:00)
[2020-01-04] MEDS: INSULIN LISPRO (HIGH DOSE) 100 UNITS/ML SUBCUT SCH ×4 (06:57→21:00)
[2020-01-04] MEDS: SODIUM HYPOCHLORITE 0.125% 473ML SOLUTION TOP SCH ×2 (08:40→17:16)
[2020-01-04] MEDS: HEPARIN 5000 UNITS/ML VIAL SUBCUT SCH ×2 (08:40→20:39)
[2020-01-04] MEDS: HYDROCODONE/ACETAMINOPHEN 5/325MG TABLET PO PRN ×2 (13:22→20:40)
[2020-01-04] MEDS: SENNOSIDES/DOCUSATE SOD 8.6/50MG TABLET PO PRN (23:36)
[2020-01-05] VITALS: BP 102/64
[2020-01-05] MEDS: DIPHENHYDRAMINE 50MG/ML VIAL IV PRN ×4 (00:33→23:46)
[2020-01-05] MEDS: TEMAZEPAM 15MG CAPSULE PO PRN (00:59)
[2020-01-05] MEDS: AMPICILLIN 2,000 MG in SODIUM CHLORIDE 0.9% 100 ML IV SCH ×4 (03:27→20:09)
[2020-01-05] MEDS: BLOOD SUGAR DIAGNOSTIC STRIP TEST SCH ×4 (07:20→21:00)
[2020-01-05] MEDS: INSULIN LISPRO (HIGH DOSE) 100 UNITS/ML SUBCUT SCH ×4 (07:30→21:00)
[2020-01-05] MEDS: SODIUM HYPOCHLORITE 0.125% 473ML SOLUTION TOP SCH ×2 (09:00→16:07)
[2020-01-05] MEDS: HEPARIN 5000 UNITS/ML VIAL SUBCUT SCH ×2 (09:00→20:47)
[2020-01-05] MEDS: ONDANSETRON HCL 4MG/2ML INJ IV PRN (09:27)
[2020-01-05 12:00] VITALS: BP 101/59
[2020-01-05] MEDS: MORPHINE SULFATE 2 MG/ML CPJ (NOT FOR IM USE) IV PRN ×2 (13:26→20:09)
[2020-01-05] MEDS: HYDROCODONE/ACETAMINOPHEN 5/325MG TABLET PO PRN ×2 (15:38→22:01)
[2020-01-05 16:00] VITALS: BP 102/64
[2020-01-05 20:00] VITALS: BP 109/57
[2020-01-06] VITALS: BP 109/55
[2020-01-06] MEDS: SENNOSIDES/DOCUSATE SOD 8.6/50MG TABLET PO PRN (00:01)
[2020-01-06] MEDS: TEMAZEPAM 15MG CAPSULE PO PRN (00:01)
[2020-01-06] MEDS: AMPICILLIN 2,000 MG in SODIUM CHLORIDE 0.9% 100 ML IV SCH ×4 (03:15→20:34)
[2020-01-06] MEDS: MORPHINE SULFATE 2 MG/ML CPJ (NOT FOR IM USE) IV PRN ×3 (03:27→20:35)
[2020-01-06] MEDS: BLOOD SUGAR DIAGNOSTIC STRIP TEST SCH ×4 (06:05→21:00)
[2020-01-06] MEDS: INSULIN LISPRO (HIGH DOSE) 100 UNITS/ML SUBCUT SCH ×4 (06:05→21:00)
[2020-01-06 08:00] VITALS: BP 110/62
[2020-01-06] MEDS: SODIUM HYPOCHLORITE 0.125% 473ML SOLUTION TOP SCH ×2 (09:28→17:13)
[2020-01-06] MEDS: HEPARIN 5000 UNITS/ML VIAL SUBCUT SCH ×2 (09:29→20:34)
[2020-01-06] MEDS: DIPHENHYDRAMINE 50MG/ML VIAL IV PRN ×2 (09:32→22:25)
[2020-01-06] MEDS: HYDROCODONE/ACETAMINOPHEN 5/325MG TABLET PO PRN (17:14)
[2020-01-06 20:00] VITALS: BP 101/45
[2020-01-07] VITALS: BP 104/54
[2020-01-07] MEDS: SENNOSIDES/DOCUSATE SOD 8.6/50MG TABLET PO PRN (00:16)
[2020-01-07] MEDS: TEMAZEPAM 15MG CAPSULE PO PRN (00:16)
[2020-01-07] MEDS: HYDROCODONE/ACETAMINOPHEN 5/325MG TABLET PO PRN ×2 (00:55→13:11)
[2020-01-07] MEDS: BLOOD SUGAR DIAGNOSTIC STRIP TEST SCH ×4 (07:20→21:13)
[2020-01-07] MEDS: INSULIN LISPRO (HIGH DOSE) 100 UNITS/ML SUBCUT SCH ×4 (07:50→21:00)
[2020-01-07] MEDS: HEPARIN 5000 UNITS/ML VIAL SUBCUT SCH ×2 (09:00→21:13)
[2020-01-07] MEDS: SODIUM HYPOCHLORITE 0.125% 473ML SOLUTION TOP SCH ×2 (09:00→17:00)
[2020-01-07] MEDS ORDERED: NALOXONE HCL 0.4 MG/ML 1ML VIAL IV PRN (11:00)
[2020-01-07 12:00] VITALS: BP 103/56
[2020-01-07] MEDS: DIPHENHYDRAMINE 50MG/ML VIAL IV PRN ×2 (12:03→18:45)
[2020-01-07] MEDS: AMPICILLIN 2,000 MG in SODIUM CHLORIDE 0.9% 100 ML IV SCH ×2 (13:00→21:13)
[2020-01-07] MEDS: GABAPENTIN 100MG CAPSULE PO SCH ×4 (14:00→23:00)
[2020-01-07] MEDS: MORPHINE SULFATE 2 MG/ML CPJ (NOT FOR IM USE) IV PRN (15:17)
[2020-01-07 16:00] VITALS: BP 108/56
[2020-01-07 20:00] VITALS: BP 103/54
[2020-01-07] MEDS ORDERED: HYDROCODONE/ACETAMINOPHEN 5/325MG TABLET PO PRN (21:00)
[2020-01-07] MEDS ORDERED: MORPHINE SULFATE 2 MG/ML CPJ (NOT FOR IM USE) IV PRN (21:00)
[2020-01-07] MEDS: HYDROCODONE/ACETAMINOPHEN 10/325MG TABLET PO PRN (22:47)
[2020-01-08] VITALS: BP 110/57
[2020-01-08] MEDS: TEMAZEPAM 15MG CAPSULE PO PRN ×2 (00:19→23:47)
[2020-01-08] MEDS: SENNOSIDES/DOCUSATE SOD 8.6/50MG TABLET PO PRN ×2 (00:19→23:47)
[2020-01-08] MEDS: MORPHINE SULFATE 2 MG/ML CPJ (NOT FOR IM USE) IV PRN ×2 (01:53→03:04)
[2020-01-08] MEDS: AMPICILLIN 2,000 MG in SODIUM CHLORIDE 0.9% 100 ML IV SCH ×4 (01:53→18:57)
[2020-01-08] MEDS: DIPHENHYDRAMINE 50MG/ML VIAL IV PRN ×4 (02:03→21:54)
[2020-01-08] MEDS: GABAPENTIN 100MG CAPSULE PO SCH (06:00)
[2020-01-08] MEDS: BLOOD SUGAR DIAGNOSTIC STRIP TEST SCH ×4 (06:40→21:03)
[2020-01-08] MEDS: INSULIN LISPRO (HIGH DOSE) 100 UNITS/ML SUBCUT SCH ×4 (07:50→21:00)
[2020-01-08 08:00] VITALS: BP 99/52
[2020-01-08] MEDS: HEPARIN 5000 UNITS/ML VIAL SUBCUT SCH ×2 (08:58→20:46)
[2020-01-08] MEDS: SODIUM HYPOCHLORITE 0.125% 473ML SOLUTION TOP SCH (09:00)
[2020-01-08] MEDS: HYDROMORPHONE HCL/PF 2MG/ML CPJ IV PRN ×2 (10:34→18:20)
[2020-01-08 12:00] VITALS: BP 109/60
[2020-01-08] MEDS: HYDROCODONE/ACETAMINOPHEN 10/325MG TABLET PO PRN ×2 (13:32→20:46)
[2020-01-08 16:00] VITALS: BP 101/55
[2020-01-08 20:00] VITALS: BP 104/58
[2020-01-09] VITALS: BP 116/56
[2020-01-09] MEDS: HYDROMORPHONE HCL/PF 2MG/ML CPJ IV PRN ×4 (00:53→19:10)
[2020-01-09] MEDS: AMPICILLIN 2,000 MG in SODIUM CHLORIDE 0.9% 100 ML IV SCH ×5 (00:59→23:35)
[2020-01-09] MEDS: DIPHENHYDRAMINE 50MG/ML VIAL IV PRN ×4 (03:55→22:10)
[2020-01-09] MEDS: BLOOD SUGAR DIAGNOSTIC STRIP TEST SCH ×4 (06:43→20:18)
[2020-01-09] MEDS: INSULIN LISPRO (HIGH DOSE) 100 UNITS/ML SUBCUT SCH ×4 (06:43→20:18)
[2020-01-09] MEDS: HEPARIN 5000 UNITS/ML VIAL SUBCUT SCH ×2 (09:54→20:19)
[2020-01-09 16:00] VITALS: BP 101/52
[2020-01-09 20:00] VITALS: BP 121/68
[2020-01-10] VITALS: BP 119/62
[2020-01-10] MEDS: SODIUM HYPOCHLORITE 0.125% 473ML SOLUTION TOP SCH ×4 (00:10→17:00)
[2020-01-10] MEDS: TEMAZEPAM 15MG CAPSULE PO PRN (00:16)
[2020-01-10] MEDS: SENNOSIDES/DOCUSATE SOD 8.6/50MG TABLET PO PRN (00:16)
[2020-01-10] MEDS: HYDROMORPHONE HCL/PF 2MG/ML CPJ IV PRN ×4 (01:16→21:01)
[2020-01-10] MEDS: HYDROCODONE/ACETAMINOPHEN 10/325MG TABLET PO PRN ×2 (03:27→23:11)
[2020-01-10] MEDS: AMPICILLIN 2,000 MG in SODIUM CHLORIDE 0.9% 100 ML IV SCH ×4 (05:19→23:12)
[2020-01-10] MEDS: DIPHENHYDRAMINE 50MG/ML VIAL IV PRN ×3 (05:19→17:59)
[2020-01-10] MEDS: BLOOD SUGAR DIAGNOSTIC STRIP TEST SCH ×4 (06:27→20:43)
[2020-01-10] MEDS: INSULIN LISPRO (HIGH DOSE) 100 UNITS/ML SUBCUT SCH ×4 (07:50→20:44)
[2020-01-10] MEDS: HEPARIN 5000 UNITS/ML VIAL SUBCUT SCH ×2 (08:19→20:45)
[2020-01-10 12:00] VITALS: BP 95/41
[2020-01-10 16:00] VITALS: BP 101/48
[2020-01-11] VITALS: BP 117/73
[2020-01-11] MEDS ORDERED: TEMAZEPAM 15MG CAPSULE PO PRN (00:30)
[2020-01-11] MEDS: DIPHENHYDRAMINE 50MG/ML VIAL IV PRN ×4 (01:12→22:32)
[2020-01-11] MEDS: HYDROMORPHONE HCL/PF 2MG/ML CPJ IV PRN ×4 (03:22→23:44)
[2020-01-11] MEDS: AMPICILLIN 2,000 MG in SODIUM CHLORIDE 0.9% 100 ML IV SCH ×3 (05:10→17:24)
[2020-01-11] MEDS: BLOOD SUGAR DIAGNOSTIC STRIP TEST SCH ×4 (07:20→21:00)
[2020-01-11] MEDS: INSULIN LISPRO (HIGH DOSE) 100 UNITS/ML SUBCUT SCH ×4 (07:40→21:00)
[2020-01-11 08:00] VITALS: BP 114/68
[2020-01-11] MEDS: HEPARIN 5000 UNITS/ML VIAL SUBCUT SCH ×2 (08:59→20:28)
[2020-01-11] MEDS: SODIUM HYPOCHLORITE 0.125% 473ML SOLUTION TOP SCH ×2 (09:00→16:38)
[2020-01-11 09:39] LABS: CHLORIDE 105 mEq/L (98-107)
[2020-01-11 09:46] LABS: BASOPHILS % 0.3 % (0.0-2.0); HEMATOCRIT. 28.5 % (42.0-52.0); HEMOGLOBIN. 9.4 g/dL (14.0-18.0); LYMPHOCYTES % 19.6 % (20.0-50.0); MEAN CORPUSCULAR HEMOGLOBIN 27.3 pg (28.0-32.0); MEAN CORPUSCULAR VOLUME 82.4 fL (80.0-94.0); MEAN PLATELET VOLUME 8.4 fl (7.4-10.4); MONOCYTES % 12.4 % (2.0-8.0); NEUTROPHILS % 64.7 % (40.0-76.0); PLATELET 275 x1000/uL (130-400); RED BLOOD CELL COUNT 3.46 mill/uL (4.7-6.1); RED CELL DISTRIBUTION WIDTH 20.9 % (11.6-14.6)
[2020-01-11 12:00] VITALS: BP 103/55
[2020-01-11] MEDS: HYDROCODONE/ACETAMINOPHEN 10/325MG TABLET PO PRN ×2 (13:29→20:18)
[2020-01-11 16:00] VITALS: BP 104/54
[2020-01-11 20:00] VITALS: BP 114/49
[2020-01-12] VITALS: BP 136/50
[2020-01-12] MEDS: SENNOSIDES/DOCUSATE SOD 8.6/50MG TABLET PO PRN (01:24)
[2020-01-12] MEDS: AMPICILLIN 2,000 MG in SODIUM CHLORIDE 0.9% 100 ML IV SCH ×3 (01:28→06:17)
[2020-01-12] MEDS ORDERED: TEMAZEPAM 15MG CAPSULE PO PRN (02:45)
[2020-01-12] MEDS: DIPHENHYDRAMINE 50MG/ML VIAL IV PRN ×3 (04:34→20:05)
[2020-01-12] MEDS: HYDROMORPHONE HCL/PF 2MG/ML CPJ IV PRN ×3 (05:59→17:58)
[2020-01-12] MEDS: BLOOD SUGAR DIAGNOSTIC STRIP TEST SCH ×4 (06:38→21:00)
[2020-01-12] MEDS: INSULIN LISPRO (HIGH DOSE) 100 UNITS/ML SUBCUT SCH ×4 (07:50→21:00)
[2020-01-12] MEDS: ZINC SULFATE 220 MG ( 50 ) CAPSULE PO SCH (09:22)
[2020-01-12] MEDS: HEPARIN 5000 UNITS/ML VIAL SUBCUT SCH ×2 (09:22→20:05)
[2020-01-12] MEDS: ASCORBIC ACID 500 MG TABLET PO SCH (09:22)
[2020-01-12] MEDS: SODIUM HYPOCHLORITE 0.125% 473ML SOLUTION TOP SCH ×2 (09:44→17:58)
[2020-01-12 12:00] VITALS: BP 117/60
[2020-01-12 16:00] VITALS: BP 125/65
[2020-01-12 20:00] VITALS: BP 135/76
[2020-01-12] MEDS: HYDROCODONE/ACETAMINOPHEN 10/325MG TABLET PO PRN (20:20)
[2020-01-13] VITALS: BP 115/70
[2020-01-13] MEDS: SENNOSIDES/DOCUSATE SOD 8.6/50MG TABLET PO PRN (00:26)
[2020-01-13] MEDS: TEMAZEPAM 15MG CAPSULE PO PRN (00:27)
[2020-01-13] MEDS: HYDROMORPHONE HCL/PF 2MG/ML CPJ IV PRN ×3 (00:27→22:28)
[2020-01-13] MEDS: DIPHENHYDRAMINE 50MG/ML VIAL IV PRN ×3 (02:06→19:34)
[2020-01-13] MEDS: HYDROCODONE/ACETAMINOPHEN 10/325MG TABLET PO PRN ×3 (04:28→20:52)
[2020-01-13] MEDS: BLOOD SUGAR DIAGNOSTIC STRIP TEST SCH ×4 (06:48→21:00)
[2020-01-13] MEDS: INSULIN LISPRO (HIGH DOSE) 100 UNITS/ML SUBCUT SCH ×4 (07:29→21:00)
[2020-01-13] MEDS: ZINC SULFATE 220 MG ( 50 ) CAPSULE PO SCH (09:16)
[2020-01-13] MEDS: ASCORBIC ACID 500 MG TABLET PO SCH (09:16)
[2020-01-13] MEDS: HEPARIN 5000 UNITS/ML VIAL SUBCUT SCH ×2 (09:17→21:28)
[2020-01-13] MEDS: SODIUM HYPOCHLORITE 0.125% 473ML SOLUTION TOP SCH ×2 (09:23→16:04)
[2020-01-13 12:00] VITALS: BP 121/56
[2020-01-13 16:00] VITALS: BP 125/73
[2020-01-13 20:23] VITALS: BP 116/70
[2020-01-14] MEDS: TEMAZEPAM 15MG CAPSULE PO PRN (00:04)
[2020-01-14] MEDS: SENNOSIDES/DOCUSATE SOD 8.6/50MG TABLET PO PRN (00:04)
[2020-01-14 00:26] VITALS: BP 110/53
[2020-01-14] MEDS: HYDROCODONE/ACETAMINOPHEN 10/325MG TABLET PO PRN ×3 (00:57→21:12)
[2020-01-14] MEDS: DIPHENHYDRAMINE 50MG/ML VIAL IV PRN ×4 (01:41→22:28)
[2020-01-14] MEDS: BLOOD SUGAR DIAGNOSTIC STRIP TEST SCH ×4 (06:28→21:00)
[2020-01-14] MEDS: INSULIN LISPRO (HIGH DOSE) 100 UNITS/ML SUBCUT SCH ×4 (07:33→21:00)
[2020-01-14] MEDS: ZINC SULFATE 220 MG ( 50 ) CAPSULE PO SCH (09:01)
[2020-01-14] MEDS: ASCORBIC ACID 500 MG TABLET PO SCH (09:01)
[2020-01-14] MEDS: SODIUM HYPOCHLORITE 0.125% 473ML SOLUTION TOP SCH ×2 (09:02→17:00)
[2020-01-14] MEDS: HEPARIN 5000 UNITS/ML VIAL SUBCUT SCH ×2 (09:02→21:11)
[2020-01-14] MEDS: HYDROMORPHONE HCL/PF 2MG/ML CPJ IV PRN ×3 (10:45→23:29)
[2020-01-14 12:00] VITALS: BP 102/57
[2020-01-14 20:00] VITALS: BP 97/58
[2020-01-15] VITALS: BP 111/57
[2020-01-15] MEDS: TEMAZEPAM 15MG CAPSULE PO PRN (01:00)
[2020-01-15] MEDS: ACETAMINOPHEN 325MG TABLET PO PRN (01:00)
[2020-01-15] MEDS: SENNOSIDES/DOCUSATE SOD 8.6/50MG TABLET PO PRN (01:01)
[2020-01-15] MEDS: INSULIN LISPRO (HIGH DOSE) 100 UNITS/ML SUBCUT SCH ×4 (05:47→20:26)
[2020-01-15] MEDS: BLOOD SUGAR DIAGNOSTIC STRIP TEST SCH ×4 (05:47→20:26)
[2020-01-15] MEDS: HYDROMORPHONE HCL/PF 2MG/ML CPJ IV PRN ×3 (06:56→20:07)
[2020-01-15 08:00] VITALS: BP_SYST 106; BP_SYST 110; BP_DIAS 59; BP_DIAS 65
[2020-01-15] MEDS: DIPHENHYDRAMINE 50MG/ML VIAL IV PRN ×3 (08:06→21:39)
[2020-01-15] MEDS: HEPARIN 5000 UNITS/ML VIAL SUBCUT SCH ×2 (08:06→20:11)
[2020-01-15] MEDS: SODIUM HYPOCHLORITE 0.125% 473ML SOLUTION TOP SCH ×2 (08:07→17:15)
[2020-01-15] MEDS: ASCORBIC ACID 500 MG TABLET PO SCH (08:07)
[2020-01-15] MEDS: ONDANSETRON HCL 4MG/2ML INJ IV PRN (08:07)
[2020-01-15] MEDS: ZINC SULFATE 220 MG ( 50 ) CAPSULE PO SCH (08:07)
[2020-01-15 12:00] VITALS: BP_SYST 106; BP_SYST 110; BP_DIAS 47; BP_DIAS 75
[2020-01-15] MEDS: TAZOBACTAM IV SCH ×2 (15:48→20:11)
[2020-01-15] MEDS: SODIUM CHLORIDE 0.9% IV SCH ×2 (15:48→20:11)
[2020-01-15] MEDS: PIPERACILLIN IV SCH ×2 (15:48→20:11)
[2020-01-15 16:00] VITALS: BP_SYST 102; BP_SYST 105; BP_DIAS 48; BP_DIAS 67
[2020-01-15 17:29] LABS: BASOPHILS % 0.6 % (0.0-2.0); EOSINOPHILS % 1.1 % (0.0-5.0); HEMATOCRIT. 29.1 % (42.0-52.0); HEMOGLOBIN. 9.6 g/dL (14.0-18.0); LYMPHOCYTES % 9.5 % (20.0-50.0); MEAN CORPUSCULAR HEMOGLOBIN 27.5 pg (28.0-32.0); MEAN CORPUSCULAR VOLUME 82.9 fL (80.0-94.0); MEAN PLATELET VOLUME 8.1 fl (7.4-10.4); MONOCYTES % 14.4 % (2.0-8.0); NEUTROPHILS % 74.4 % (40.0-76.0); PLATELET 371 x1000/uL (130-400); RED BLOOD CELL COUNT 3.51 mill/uL (4.7-6.1); RED CELL DISTRIBUTION WIDTH 20.8 % (11.6-14.6)
[2020-01-15] MEDS: HYDROCODONE/ACETAMINOPHEN 10/325MG TABLET PO PRN ×2 (17:31→23:35)
[2020-01-15 17:34] LABS: CHLORIDE 104 mEq/L (98-107)
[2020-01-15 20:00] VITALS: BP 110/55
[2020-01-15] MEDS: VANCOMYCIN 2,000 MG in DEXT 5% WATER 500 ML IV SCH ×2 (22:00→23:34)
[2020-01-16] VITALS: BP 108/58
[2020-01-16] MEDS: SENNOSIDES/DOCUSATE SOD 8.6/50MG TABLET PO PRN (01:04)
[2020-01-16] MEDS: TEMAZEPAM 15MG CAPSULE PO PRN ×2 (01:04→20:06)
[2020-01-16] MEDS: TAZOBACTAM IV SCH ×4 (02:10→20:06)
[2020-01-16] MEDS: PIPERACILLIN IV SCH ×4 (02:10→20:06)
[2020-01-16] MEDS: SODIUM CHLORIDE 0.9% IV SCH ×4 (02:10→20:06)
[2020-01-16] MEDS: HYDROMORPHONE HCL/PF 2MG/ML CPJ IV PRN ×4 (02:10→20:06)
[2020-01-16] MEDS: DIPHENHYDRAMINE 50MG/ML VIAL IV PRN ×4 (03:35→20:06)
[2020-01-16 04:00] VITALS: BP 105/61
[2020-01-16] MEDS: HYDROCODONE/ACETAMINOPHEN 10/325MG TABLET PO PRN (05:02)
[2020-01-16 06:17] LABS: HEMATOCRIT. 26.9 % (42.0-52.0); HEMOGLOBIN. 9.1 g/dL (14.0-18.0); MEAN CORPUSCULAR HEMOGLOBIN 27.7 pg (28.0-32.0); MEAN CORPUSCULAR VOLUME 82.4 fL (80.0-94.0); MEAN PLATELET VOLUME 8.3 fl (7.4-10.4); PLATELET 328 x1000/uL (130-400); RED BLOOD CELL COUNT 3.27 mill/uL (4.7-6.1); RED CELL DISTRIBUTION WIDTH 20.4 % (11.6-14.6)
[2020-01-16] MEDS: BLOOD SUGAR DIAGNOSTIC STRIP TEST SCH ×4 (07:01→20:50)
[2020-01-16] MEDS: INSULIN LISPRO (HIGH DOSE) 100 UNITS/ML SUBCUT SCH ×4 (07:01→20:50)
[2020-01-16 08:00] VITALS: BP 103/58
[2020-01-16] MEDS: ZINC SULFATE 220 MG ( 50 ) CAPSULE PO SCH (08:34)
[2020-01-16] MEDS: ASCORBIC ACID 500 MG TABLET PO SCH (08:35)
[2020-01-16] MEDS: HEPARIN 5000 UNITS/ML VIAL SUBCUT SCH ×2 (08:35→20:07)
[2020-01-16] MEDS: SODIUM HYPOCHLORITE 0.125% 473ML SOLUTION TOP SCH ×2 (09:27→17:00)
[2020-01-16] MEDS: VANCOMYCIN 2,000 MG in DEXT 5% WATER 500 ML IV SCH ×2 (10:00→20:51)
[2020-01-16 12:00] VITALS: BP 113/59
[2020-01-16 14:46] LABS: PLATELET ESTIMATE NORMAL
[2020-01-16 16:00] VITALS: BP 109/60
[2020-01-16 20:00] VITALS: BP 101/60
[2020-01-17] VITALS: BP 107/65
[2020-01-17] MEDS: HYDROMORPHONE HCL/PF 2MG/ML CPJ IV PRN ×4 (02:03→23:01)
[2020-01-17] MEDS: DIPHENHYDRAMINE 50MG/ML VIAL IV PRN ×4 (02:03→23:01)
[2020-01-17] MEDS: TAZOBACTAM IV SCH ×4 (02:03→21:54)
[2020-01-17] MEDS: SODIUM CHLORIDE 0.9% IV SCH ×4 (02:03→21:54)
[2020-01-17] MEDS: PIPERACILLIN IV SCH ×4 (02:03→21:54)
[2020-01-17] MEDS: DOCUSATE SODIUM 100MG CAPSULE PO PRN ×2 (03:25→23:58)
[2020-01-17] MEDS: SENNOSIDES/DOCUSATE SOD 8.6/50MG TABLET PO PRN ×2 (03:28→23:58)
[2020-01-17] MEDS: BLOOD SUGAR DIAGNOSTIC STRIP TEST SCH ×4 (05:20→21:00)
[2020-01-17] MEDS: INSULIN LISPRO (HIGH DOSE) 100 UNITS/ML SUBCUT SCH ×4 (05:21→21:00)
[2020-01-17 08:00] VITALS: BP 103/52
[2020-01-17] MEDS: SODIUM HYPOCHLORITE 0.125% 473ML SOLUTION TOP SCH ×2 (09:54→16:48)
[2020-01-17] MEDS: ZINC SULFATE 220 MG ( 50 ) CAPSULE PO SCH (09:56)
[2020-01-17] MEDS: ASCORBIC ACID 500 MG TABLET PO SCH (09:56)
[2020-01-17] MEDS: HEPARIN 5000 UNITS/ML VIAL SUBCUT SCH ×2 (09:57→23:51)
[2020-01-17] MEDS: VANCOMYCIN 2,000 MG in DEXT 5% WATER 500 ML IV SCH (10:00)
[2020-01-17 16:00] VITALS: BP 107/66
[2020-01-17 20:00] VITALS: BP 101/56
[2020-01-17] MEDS: TEMAZEPAM 15MG CAPSULE PO PRN (23:58)
[2020-01-18] VITALS: BP 113/53
[2020-01-18] MEDS: DIPHENHYDRAMINE 50MG/ML VIAL IV PRN ×3 (06:48→18:58)
[2020-01-18] MEDS: HYDROMORPHONE HCL/PF 2MG/ML CPJ IV PRN ×3 (06:48→18:59)
[2020-01-18] MEDS: AMOXICILLIN/POTASSIUM CLAVULANATE 500/125MG TAB PO SCH ×3 (06:48→21:19)
[2020-01-18] MEDS: BLOOD SUGAR DIAGNOSTIC STRIP TEST SCH ×4 (07:20→21:20)
[2020-01-18] MEDS: INSULIN LISPRO (HIGH DOSE) 100 UNITS/ML SUBCUT SCH ×4 (07:50→21:00)
[2020-01-18 08:00] VITALS: BP 113/69
[2020-01-18] MEDS: ASCORBIC ACID 500 MG TABLET PO SCH (09:16)
[2020-01-18] MEDS: ZINC SULFATE 220 MG ( 50 ) CAPSULE PO SCH (09:16)
[2020-01-18] MEDS: SODIUM HYPOCHLORITE 0.125% 473ML SOLUTION TOP SCH ×2 (09:17→17:33)
[2020-01-18] MEDS: HEPARIN 5000 UNITS/ML VIAL SUBCUT SCH ×2 (09:17→21:19)
[2020-01-18 11:16] LABS: CHLORIDE 103 mEq/L (98-107)
[2020-01-18 12:00] VITALS: BP 112/63
[2020-01-18 16:00] VITALS: BP 101/55
[2020-01-18 20:00] VITALS: BP 106/52
[2020-01-18] MEDS: HYDROCODONE/ACETAMINOPHEN 10/325MG TABLET PO PRN (21:31)
[2020-01-19] VITALS: BP 99/64
[2020-01-19] MEDS: DOCUSATE SODIUM 100MG CAPSULE PO PRN (01:18)
[2020-01-19] MEDS: DIPHENHYDRAMINE 50MG/ML VIAL IV PRN ×3 (01:18→17:38)
[2020-01-19] MEDS: HYDROMORPHONE HCL/PF 2MG/ML CPJ IV PRN ×3 (01:18→17:39)
[2020-01-19] MEDS: SENNOSIDES/DOCUSATE SOD 8.6/50MG TABLET PO PRN (01:18)
[2020-01-19] MEDS: BLOOD SUGAR DIAGNOSTIC STRIP TEST SCH ×4 (06:49→21:35)
[2020-01-19] MEDS: AMOXICILLIN/POTASSIUM CLAVULANATE 500/125MG TAB PO SCH ×3 (06:55→21:36)
[2020-01-19] MEDS: INSULIN LISPRO (HIGH DOSE) 100 UNITS/ML SUBCUT SCH ×4 (07:30→21:00)
[2020-01-19 08:00] VITALS: BP 109/60
[2020-01-19] MEDS: HEPARIN 5000 UNITS/ML VIAL SUBCUT SCH ×2 (09:00→21:36)
[2020-01-19] MEDS: ASCORBIC ACID 500 MG TABLET PO SCH (09:25)
[2020-01-19] MEDS: ZINC SULFATE 220 MG ( 50 ) CAPSULE PO SCH (09:25)
[2020-01-19] MEDS: SODIUM HYPOCHLORITE 0.125% 473ML SOLUTION TOP SCH ×2 (09:37→17:00)
[2020-01-19 17:30] VITALS: BP 112/64
[2020-01-19 20:00] VITALS: BP 125/58
[2020-01-19] MEDS: HYDROCODONE/ACETAMINOPHEN 10/325MG TABLET PO PRN (21:09)
[2020-01-20] VITALS: BP 101/70
[2020-01-20] MEDS: HYDROMORPHONE HCL/PF 2MG/ML CPJ IV PRN ×3 (01:43→19:06)
[2020-01-20] MEDS: DIPHENHYDRAMINE 50MG/ML VIAL IV PRN ×3 (01:43→20:22)
[2020-01-20] MEDS: AMOXICILLIN/POTASSIUM CLAVULANATE 500/125MG TAB PO SCH (06:25)
[2020-01-20] MEDS: BLOOD SUGAR DIAGNOSTIC STRIP TEST SCH ×3 (06:28→21:00)
[2020-01-20] MEDS: INSULIN LISPRO (HIGH DOSE) 100 UNITS/ML SUBCUT SCH ×3 (07:50→21:00)
[2020-01-20 08:29] VITALS: BP 113/68
[2020-01-20] MEDS: SODIUM HYPOCHLORITE 0.125% 473ML SOLUTION TOP SCH ×2 (09:00→17:00)
[2020-01-20] MEDS: ASCORBIC ACID 500 MG TABLET PO SCH (09:52)
[2020-01-20] MEDS: DOCUSATE SODIUM 100MG CAPSULE PO PRN (09:52)
[2020-01-20] MEDS: ZINC SULFATE 220 MG ( 50 ) CAPSULE PO SCH (09:52)
[2020-01-20] MEDS: HEPARIN 5000 UNITS/ML VIAL SUBCUT SCH ×2 (09:57→20:22)
[2020-01-20 12:05] VITALS: BP 120/60
[2020-01-20 16:48] VITALS: BP 107/38
[2020-01-20 20:00] VITALS: BP 106/66
[2020-01-20 20:56] LABS: BASOPHILS % 1.1 % (0.0-2.0); EOSINOPHILS % 5.3 % (0.0-5.0); HEMATOCRIT. 30.9 % (42.0-52.0); HEMOGLOBIN. 10.3 g/dL (14.0-18.0); LYMPHOCYTES % 17.5 % (20.0-50.0); MEAN CORPUSCULAR HEMOGLOBIN 27.7 pg (28.0-32.0); MEAN CORPUSCULAR VOLUME 83.2 fL (80.0-94.0); MEAN PLATELET VOLUME 8.2 fl (7.4-10.4); MONOCYTES % 9.6 % (2.0-8.0); NEUTROPHILS % 66.5 % (40.0-76.0); PLATELET 393 x1000/uL (130-400); RED BLOOD CELL COUNT 3.71 mill/uL (4.7-6.1)
[2020-01-20 21:00] LABS: CHLORIDE 102 mEq/L (98-107)
[2020-01-20] MEDS: HYDROCODONE/ACETAMINOPHEN 10/325MG TABLET PO PRN (21:16)
[2020-01-20] MEDS: SENNOSIDES/DOCUSATE SOD 8.6/50MG TABLET PO PRN (23:39)
[2020-01-21] VITALS: BP 124/70
[2020-01-21] MEDS: HYDROMORPHONE HCL/PF 2MG/ML CPJ IV PRN ×3 (03:04→21:43)
[2020-01-21 04:00] VITALS: BP 109/53
[2020-01-21] MEDS: DIPHENHYDRAMINE 50MG/ML VIAL IV PRN ×3 (04:13→20:29)
[2020-01-21] MEDS: ACETAMINOPHEN 325MG TABLET PO PRN (05:13)
[2020-01-21] MEDS: BLOOD SUGAR DIAGNOSTIC STRIP TEST SCH ×4 (06:25→21:00)
[2020-01-21] MEDS: INSULIN LISPRO (HIGH DOSE) 100 UNITS/ML SUBCUT SCH ×4 (07:50→21:00)
[2020-01-21] MEDS: ZINC SULFATE 220 MG ( 50 ) CAPSULE PO SCH (09:00)
[2020-01-21] MEDS: HEPARIN 5000 UNITS/ML VIAL SUBCUT SCH ×2 (09:00→21:46)
[2020-01-21] MEDS: SODIUM HYPOCHLORITE 0.125% 473ML SOLUTION TOP SCH ×2 (09:00→17:00)
[2020-01-21] MEDS: ASCORBIC ACID 500 MG TABLET PO SCH (09:00)
[2020-01-21] MEDS: AMOXICILLIN/POTASSIUM CLAVULANATE 500/125MG TAB PO SCH ×2 (14:00→21:46)
[2020-01-21] MEDS ORDERED: LORAZEPAM 0.5MG TABLET PO PRN (16:30)
[2020-01-21] MEDS: HYDROCODONE/ACETAMINOPHEN 10/325MG TABLET PO PRN (18:51)
[2020-01-21 20:00] VITALS: BP 112/55
[2020-01-22] VITALS: BP 114/62
[2020-01-22] MEDS: DIPHENHYDRAMINE 50MG/ML VIAL IV PRN ×2 (02:29→17:54)
[2020-01-22 04:00] VITALS: BP 109/67
[2020-01-22] MEDS: HYDROCODONE/ACETAMINOPHEN 10/325MG TABLET PO PRN (04:55)
[2020-01-22] MEDS: AMOXICILLIN/POTASSIUM CLAVULANATE 500/125MG TAB PO SCH ×3 (06:44→22:00)
[2020-01-22] MEDS: BLOOD SUGAR DIAGNOSTIC STRIP TEST SCH (06:45)
[2020-01-22] MEDS: HYDROMORPHONE HCL/PF 2MG/ML CPJ IV PRN ×2 (06:51→16:31)
[2020-01-22] MEDS: INSULIN LISPRO (HIGH DOSE) 100 UNITS/ML SUBCUT SCH (07:32)
[2020-01-22] MEDS: ASCORBIC ACID 500 MG TABLET PO SCH (09:30)
[2020-01-22] MEDS: ZINC SULFATE 220 MG ( 50 ) CAPSULE PO SCH (09:31)
[2020-01-22] MEDS: HEPARIN 5000 UNITS/ML VIAL SUBCUT SCH ×2 (09:36→21:00)
[2020-01-22 16:00] VITALS: BP 120/68
[2020-01-22 16:31] VITALS: BP 115/75
== END 2020-01-22 21:07 | disposition left against medical advice (07) | DRG 710 ==
LOC: ER 17:54 → MICUSO 23:17 → EDBEDREQSVC 23:23 → EDBEDREQTM 23:23 → EDBEDREQ 23:23 → 6WST 12-28 12:28 → 6EST 01-04 15:25
PROVIDERS: ADMIT Internal Medicine; ATTEND Internal Medicine
PROC: 30233N1 Transfusion of Nonautologous Red Blood Cells into Peripheral Vein, Percutaneous Approach (ICD-10-PCS; 2019-12-28)
PROC: 0KBN0ZZ Excision of Right Hip Muscle, Open Approach (ICD-10-PCS; principal; 2019-12-29)
PROC: 0JB90ZZ Excision of Buttock Subcutaneous Tissue and Fascia, Open Approach (ICD-10-PCS; 2019-12-29)
PROC: 0JB70ZZ Excision of Back Subcutaneous Tissue and Fascia, Open Approach (ICD-10-PCS; 2019-12-29)
PROC: 0JB70ZZ Excision of Back Subcutaneous Tissue and Fascia, Open Approach (ICD-10-PCS; 2020-01-11)
PROC: 0JB90ZZ Excision of Buttock Subcutaneous Tissue and Fascia, Open Approach (ICD-10-PCS; 2020-01-11)
PROC: 0KBF0ZZ Excision of Right Trunk Muscle, Open Approach (ICD-10-PCS; 2020-01-11)
PROC: 0JB70ZZ Excision of Back Subcutaneous Tissue and Fascia, Open Approach (ICD-10-PCS; 2020-01-11)
DX: A41.59 Other Gram-negative sepsis (principal); G93.40 Encephalopathy, unspecified; L89.154 Pressure ulcer of sacral region, stage 4; G82.20 Paraplegia, unspecified; L03.90 Cellulitis, unspecified; N39.0 Urinary tract infection, site not specified; F14.10 Cocaine abuse, uncomplicated; I10 Essential (primary) hypertension; E43 Unspecified severe protein-calorie malnutrition; M72.6 Necrotizing fasciitis; G89.29 Other chronic pain; M54.9 Dorsalgia, unspecified; M46.28 Osteomyelitis of vertebra, sacral and sacrococcygeal region; L89.133 Pressure ulcer of right lower back, stage 3; L89.313 Pressure ulcer of right buttock, stage 3; L89.324 Pressure ulcer of left buttock, stage 4; B95.2 Enterococcus as the cause of diseases classified elsewhere; D64.9 Anemia, unspecified; Z53.29 Procedure and treatment not carried out because of patient's decision for other reasons; Z93.3 Colostomy status; Z99.3 Dependence on wheelchair; Z71.51 Drug abuse counseling and surveillance of drug abuser; Z79.82 Long term (current) use of aspirin; Z79.899 Other long term (current) drug therapy; Z03.818 Encounter for observation for suspected exposure to other biological agents ruled out
CPT/HCPCS: 36415; 71045; 72192; 80048; 80053; 80061; 80202; 80305; 80320; 81003; 82040; 82550; 82553; 82962; 83036; 83605; 83735; 84134; 84145; 84443; 84484; 85014; 85018; 85025; 85049; 85384; 85651; 86140; 86850; 86900; 86920; 87070; 87075; 87077; 87186; 93005; 96365; 99291; J0290; J0696; J0878; J1170; J1200; J1644; J1815; J2270; J2405; J2543; J3370; J3480; J3490; J7030; J7050; J7060; P9016; G0480; U0003-CS

== ENCOUNTER 2021-03-19 04:02 | Inpatient (IN) | payer MEDICAID ==
[~2021-03-19] VITALS: Ht 182.9 cm; Wt 96.2 kg
[2021-03-19 09:01] LABS: CHLORIDE 96 mEq/L (98-107); HEMATOCRIT. 24.2 % (42.0-52.0); HEMOGLOBIN. 7.9 g/dL (14.0-18.0); MEAN CORPUSCULAR HEMOGLOBIN 26.3 pg (28.0-32.0); MEAN CORPUSCULAR VOLUME 81.1 fL (80.0-94.0); MEAN PLATELET VOLUME 7.2 fl (7.4-10.4); PLATELET 925 x1000/uL (130-400); RED BLOOD CELL COUNT 2.99 mill/uL (4.7-6.1); RED CELL DISTRIBUTION WIDTH 19.2 % (11.6-14.6)
[2021-03-19 09:46] LABS: PLATELET ESTIMATE MARKEDLY INCREASED
[2021-03-19] MEDS ORDERED: CLINDAMYCIN 900 MG in DEXTROSE 5% WATER 50 ML IV ONE (10:45)
[2021-03-19] MEDS ORDERED: AZTREONAM 2 GM in DEXT 5% WATER 100 ML IV ONE (10:45)
[2021-03-19] MEDS ORDERED: AZTREONAM 2 GM in SODIUM CHLORIDE 0.9% 100 ML IV SCH (11:15)
[2021-03-19] MEDS ORDERED: CLINDAMYCIN IN 0.9 % SOD CHLOR 50 ML IV SCH (11:15)
[2021-03-19] MEDS ORDERED: DILTIAZEM HCL 60MG TABLET PO ONE (13:15)
[2021-03-19] MEDS ORDERED: OXYCODONE HCL/ACETAMINOPHEN 5/325MG TABLET PO ONE (14:00)
[2021-03-19] MEDS ORDERED: CLINDAMYCIN 600 MG in DEXTROSE 5% WATER 50 ML IV ONE (14:30)
[2021-03-19] MEDS ORDERED: ACETAMINOPHEN 325MG TABLET PO PRN (14:30)
[2021-03-19] MEDS ORDERED: IPRATROPIUM/ALBUTEROL 0.5-3(2.5)MG/3ML NEB HHN PRN (14:30)
[2021-03-19] MEDS ORDERED: CLONIDINE 0.1MG TABLET PO PRN (14:30)
[2021-03-19] MEDS ORDERED: ONDANSETRON HCL 4MG/2ML INJ IV PRN (14:30)
[2021-03-19] MEDS ORDERED: AMPICILLIN SOD/SULBACTAM NA 3 G in SODIUM CHLORIDE 0.9% 100 ML IV SCH (15:00)
[2021-03-19] MEDS: DOXYCYCLINE HYCLATE 100MG CAPSULE PO SCH (18:48)
[2021-03-19] MEDS: AMPICILLIN SOD/SULBACTAM NA 3 G in SODIUM CHLORIDE 0.9% 100 ML IV SCH (21:00)
[2021-03-19 22:00] VITALS: BP 119/39
[2021-03-19] MEDS: CLINDAMYCIN 600MG PREMIX 50 ML IV SCH (22:00)
[2021-03-20] VITALS: BP 99/55
[2021-03-20] MEDS ORDERED: AZTREONAM 1 G in DEXTROSE 5% WATER 50 ML IV SCH (01:30)
[2021-03-20] MEDS: AMPICILLIN SOD/SULBACTAM NA 3 G in SODIUM CHLORIDE 0.9% 100 ML IV SCH ×4 (03:00→21:00)
[2021-03-20 04:00] VITALS: BP 103/50
[2021-03-20] MEDS: CLINDAMYCIN 600MG PREMIX 50 ML IV SCH ×3 (04:25→22:00)
[2021-03-20] MEDS ORDERED: CLINDAMYCIN 600MG PREMIX 50 ML IV SCH (06:00)
[2021-03-20 08:00] VITALS: BP 108/55
[2021-03-20] MEDS: DOXYCYCLINE HYCLATE 100MG CAPSULE PO SCH ×2 (09:41→17:00)
[2021-03-20 12:00] VITALS: BP 112/63
[2021-03-20] MEDS ORDERED: HYDROCODONE/ACETAMINOPHEN 5/325MG TABLET PO PRN (12:15)
[2021-03-20] MEDS ORDERED: NALOXONE HCL 0.4MG/ML VIAL IV PRN (12:15)
[2021-03-20] MEDS: ASPIRIN 81MG EC TABLET PO SCH (12:30)
[2021-03-20 16:00] VITALS: BP 99/54
[2021-03-20 20:00] VITALS: BP 110/61
[2021-03-20] MEDS: DIPHENHYDRAMINE 50MG/ML VIAL IV PRN (20:19)
[2021-03-20] MEDS: MORPHINE SULFATE 2 MG/ML CPJ (NOT FOR IM USE) IV PRN (20:19)
[2021-03-20] MEDS: METOPROLOL TARTRATE 25MG TABLET PO SCH (20:22)
[2021-03-21] MEDS: AMPICILLIN SOD/SULBACTAM NA 3 G in SODIUM CHLORIDE 0.9% 100 ML IV SCH ×2 (03:00→09:00)
[2021-03-21 04:00] VITALS: BP 104/59
[2021-03-21] MEDS: MORPHINE SULFATE 2 MG/ML CPJ (NOT FOR IM USE) IV PRN (04:03)
[2021-03-21] MEDS: DIPHENHYDRAMINE 50MG/ML VIAL IV PRN (04:03)
[2021-03-21 08:00] VITALS: BP 116/66
[2021-03-21] MEDS: DOXYCYCLINE HYCLATE 100MG CAPSULE PO SCH (09:00)
[2021-03-21] MEDS: METOPROLOL TARTRATE 25MG TABLET PO SCH (09:37)
[2021-03-21] MEDS: ASPIRIN 81MG EC TABLET PO SCH (09:42)
[2021-03-21 11:14] LABS: BASOPHILS % 1.1 % (0.0-2.0); EOSINOPHILS % 2.6 % (0.0-5.0); HEMATOCRIT. 27.1 % (42.0-52.0); HEMOGLOBIN. 8.7 g/dL (14.0-18.0); LYMPHOCYTES % 9.9 % (20.0-50.0); MEAN CORPUSCULAR HEMOGLOBIN 26.5 pg (28.0-32.0); MEAN CORPUSCULAR VOLUME 82.6 fL (80.0-94.0); MEAN PLATELET VOLUME 6.8 fl (7.4-10.4); MONOCYTES % 10.4 % (2.0-8.0); PLATELET 580 x1000/uL (130-400); RED BLOOD CELL COUNT 3.28 mill/uL (4.7-6.1); RED CELL DISTRIBUTION WIDTH 19.2 % (11.6-14.6)
[2021-03-21 12:00] VITALS: BP 120/62
[2021-03-21 12:03] LABS: CHLORIDE 103 mEq/L (98-107)
[2021-03-21 12:16] LABS: LDL CHOLESTEROL 31 mg/dL (5-100)
[2021-03-21 12:40] LABS: HDL CHOLESTEROL 27 mg/dL (40-59)
[2021-03-21 12:50] LABS: TOTAL IRON BINDING CAPACITY 116 ug/dL (250-450)
[2021-03-21 19:01] LABS: FOLIC ACID (FOLATE) SERUM 7.1 ng/mL (>5.38)
== END 2021-03-21 13:35 | disposition left against medical advice (07) | DRG 720 ==
LOC: ER 04:02 → MICUSO 13:42 → 8WST 19:34
PROVIDERS: ADMIT Internal Medicine; ATTEND Internal Medicine
DX: A41.9 Sepsis, unspecified organism (principal); L89.154 Pressure ulcer of sacral region, stage 4; G82.20 Paraplegia, unspecified; I11.0 Hypertensive heart disease with heart failure; L89.304 Pressure ulcer of unspecified buttock, stage 4; I50.9 Heart failure, unspecified; E87.1 Hypo-osmolality and hyponatremia; I31.3 Pericardial effusion (noninflammatory); D64.9 Anemia, unspecified; E78.5 Hyperlipidemia, unspecified; Z20.822 Contact with and (suspected) exposure to COVID-19; I48.0 Paroxysmal atrial fibrillation; J44.9 Chronic obstructive pulmonary disease, unspecified; Z99.3 Dependence on wheelchair; Z53.29 Procedure and treatment not carried out because of patient's decision for other reasons
CPT/HCPCS: 36415; 71045; 80048; 80053; 80061; 82607; 82728; 82746; 83540; 83550; 83880; 84145; 84443; 84484; 85025; 87426; 93005; 93306; 93970; 94640; 99285; J0295; J1200; J2270; J3490; J7050; J7060